=== PATIENT | female | born 2000 | race Caucasian/White ===

== ENCOUNTER → 2018-10-24 10:20 | Outpatient (CLI) | payer MEDICAID, SELFPAY ==
--- NOTE | 2018-10-24 10:25 | CA_ITS ---
PROCEDURE: 2-D M-mode and color Doppler study INDICATIONS FOR THE TEST: Chest pain COPD Heart Murmur Tobacco Smoking Palpitations Fatigue Syncope Edema Hypertension Diabetes Mellitus Rheumatic Fever SOB JOHNSON Obesity Hyperlipidemia Family History HD Additional History TACHYCARDIA PATIENT INFORMATION HEIGHT: 64 WEIGHT:216 GENDER: Female B/P:123/80 2-D/M-MODE INTERPRETATION: 2-D MEASUREMENTS OBSERVED VALUES IN CMS Right Ventricular Dimension (RVDd) 2.2 Interventricular Septum (Thickness)(IVsd) .7 Left Ventricular Internal Dimensions(LVIDd) 5.5 Left Ventricular Posterior Wall (Thickness)(LVPWd) .7 Aortic Root 2.5 Aortic Cusp Separation 1.9 Left Atrial Dimensions (LAD) 2.5 2D 1. Left atrium is normal size, left ventricle is normal size, there is no concentric left ventricular hypertrophy, visually estimated ejection fraction 55% with no regional wall motion abnormality. 2. The right atrium and right ventricle are normal size and contractility. 3. The aortic, mitral and tricuspid valvular grossly normal. 4. The pulmonic valve is poorly visualized. 5. No significant pericardial effusion noted. DOPPLER INTERROGATION: Doppler interrogation of the aortic, mitral and tricuspid valvular presence of trace mitral and tricuspid regurgitation of no hemodynamic significance, diastolic parameters are within normal range. CONCLUSION: 1. Normal left ventricular size, preserved left ventricular systolic function, visually estimated ejection fraction of 55% with no regional wall motion abnormality, diastolic parameters are within normal range. 2. Mild mitral and tricuspid regurgitation 3. No significant pericardial effusion noted.
== END ==
PROVIDERS: PCP Family Medicine; Visit Provider Family Medicine
DX: R00.0 Tachycardia, unspecified (principal)
CPT/HCPCS: 93306

== ENCOUNTER → 2019-02-28 10:34 | Outpatient (POV) | payer MEDICAID, SELFPAY | PROVIDERS: Visit Provider Otolaryngology | DX: Z00.00 Encounter for general adult medical examination without abnormal findings (principal) ==

== ENCOUNTER 2019-09-30 22:49 | Emergency (ER) | payer OTHER, SELFPAY ==
[2019-09-30 22:51] VITALS: BP 146/96; PULSE 115; RESP 16; TEMP 36.8; O2SAT 98; BMI 36.6
--- NOTE | 2019-09-30 23:16 | CT_ITS ---
Procedure: CT ABDOMEN PELVIS W CON Patient Age:18Y CLINICAL INDICATION: RUQ pain Four episodes of RUQ the and pain with nausea past 3 weeks. She had vomiting earlier today. Patient does vap COMPARISON: No exams were available for comparison TECHNIQUE: 75 cc of Optiray 350 IV contrast utilized; but no enteric contrast Helical axial images obtained with sagittal and coronal reformats. All CT scans at the facility use one or more dose reduction, viz: automated exposure control, ma/kV adjustment per patient size (including targeted exams where dose is matched to indication, i.e. head), or iterative reconstruction technique. FINDINGS: Lower thorax: Mild dependent atelectasis. Note the calcified granuloma posterior right lung base with central calcification-12 mm maximally ABDOMEN: Liver: Unremarkable no masses or biliary dilatation. Gallbladder: tiny stippled faint densities dependent portion of gallbladder reflecting either small gravel or stippled radiopaque sludge. With given history recommend follow-up gallbladder ultrasound to correlate.. No gallbladder wall distention or wall thickening or inflammatory changes otherwise. Common duct normal diameter. No intrahepatic biliary ductal dilatation either. Pancreas: Unremarkable no masses or peripancreatic fluid collections. Spleen: unremarkable Adrenals: unremarkable tract == KIDNEYS/URETERS: unremarkable no calculi nor obstruction PELVIS:Reproductive: Uterus anteverted normal size both left and right ovary normal size measuring up to 3 cm. Right ovary contains a 15 a.5 Mm dominant follicle. No significant adnexal masses. Bladder: Nondistended. No obvious stones or masses.. No calculi upper normal wall thickness but Appendix: Unremarkable. No distention or periappendiceal phlegmonous change. GI tract. ======= possible small hiatal hernia..Stomach and small bowel appear satisfactory. [facility] report mentioned upper normal wall thickness of proximal small bowel but I believe merely reflects lack of distention overall small bowel appears normal. Terminal ileum region unremarkable. Appendix normal . Large bowel. Moderate to generous stool throughout the right and transverse colon. Peritoneum: No abnormal fluid collections. No obvious inflammatory changes. No free air. Lymph nodes: scattered mesenteric lymph nodes most numerous and evident towards right lower quadrant. Largest measuring up to 12.6 mm length. The vasculature: Unremarkable. Bones: No acute fracture unremarkable IMPRESSION: 1. Gallbladder- faint gravel or stippled calcified sludge along dependent gallbladder. Recommend gallbladder ultrasound to further evaluate for suspect tiny stones. Common duct normal 2. Slight increased number of small to moderate mesenteric nodes at RLQ-. Nonspecific. May reflect some mild chronic inflammation, less likely mild mesenteric adenitis. The appendix is normal Upper normal wall thickness proximal small bowel I suspect merely reflects lack of distension. 3. No discrete or significant acute findings abdomen or pelvis otherwise evident. . Dictated by: Joe Martinez MD 10/01/2019 14:43 Electronically signed by Joe Martinez MD in [place] 10/01/2019 14:43
[2019-09-30 23:22] LABS: Microscopic, Urine URINE MICROSCOPIC (MICROSCOPIC)
[2019-09-30 23:23] LABS: Basophils # 0.1 K/mm3 (0-0.2); Basophils % 0.7 % (0.1-2.0); Eosinophils # 0.1 K/mm3 (0.0-0.4); Hematocrit 39.6 % (37.0-47.0); Lymphocytes # 2.9 K/mm3 (0.7-4.5); Lymphocytes % 31.5 % (10-50); Mean Corpuscular HGB Conc 32.9 g/dL (31.8-35.4); Mean Corpuscular Hemoglobin 27.3 pg (27.0-31.2); Mean Platelet Volume 8.5 fl (7.4-10.4); Monocytes # 0.4 K/mm3 (0.1-1.0); Monocytes % 4.1 % (1.7-9.3); Neutrophils # 5.7 K/mm3 (1.8-7.8); Neutrophils % 62.7 % (37.0-80.0); Platelet Count 344 K/mm3 (142-424); Red Blood Count 4.77 M/mm3 (4.20-5.40); Red Cell Distribution Width 13.4 % (11.5-17.5); White Blood Count 9.1 K/mm3 (4.5-13.0)
[2019-09-30 23:24] LABS: Appearance,Urine CLEAR (Clear); Bilirubin,Urine Negative (Negative); Blood, Urine Negative (Negative); Color,Urine YELLOW (Yellow); Glucose,Urine (UA) Negative (Negative); Ketones,Urine Negative (Negative); Leukocyte Esterase,Urine TRACE (Negative); Nitrate,Urine Negative (Negative); PH,Urine 8.5 (5.0-8.5); Protein,Urine Negative (Negative)
[2019-09-30 23:26] LABS: Urine Pregnancy, HCG Qual. Negative (Negative)
[2019-09-30 23:27] LABS: Amorphous Sediment,Urine Trace /lpf; Squamous Epithelial Cell,Urine 20-50 #/hpf (0-5); WBC,Urine Occasional #/hpf (0-3)
[2019-09-30 23:28] LABS: Alanine Aminotransferase 19 U/L (12-78); Albumin Level 4.4 g/dl (3.5-5.0); Albumin/Globulin Ratio 1.3 (1.1-1.8); Alkaline Phosphatase 99 U/L (38-126); Amylase 45 U/L (30-110); Anion Gap 11.5 mEq/L (5-15); Aspartate Amino Transferase 29 U/L (14-36); Blood Urea Nitrogen 12 mg/dl (7-17); Calcium 9.4 mg/dl (8.4-10.2); Carbon Dioxide 25 mmol/L (22.0-30.0); Chloride 105 mmol/L (98-107); Creatinine Clearance Estimated 196 mL/min (50-200); Estimated Glomerular Filt Rate 107 ml/min (>60); GFR (African American) 129 ML/MIN (>60); Globulin 3.5 g/dL (1.3-3.2); Glucose 94 mg/dl (74-100); Lipase 88 U/L (23-300); Potassium 3.5 mmoL/L (3.5-5.1); Sodium 138 mmol/L (136-145); Total Protein,Serum 7.9 g/dl (6.3-8.2)
[2019-09-30 23:30] VITALS: BP 140/91; PULSE 94; RESP 18; O2SAT 98
[2019-09-30 23:31] LABS: Bilirubin,Total 0.1 mg/dl (0.2-1.3)
[2019-10-01] VITALS: BP 134/89; PULSE 90; RESP 16; O2SAT 100
[2019-10-01 00:30] VITALS: BP 142/87; PULSE 94; RESP 16; O2SAT 99
--- NOTE | 2019-10-01 00:32 | HMH.EDNVD ---
ED Disposition Clinical Impression: Abdominal pain Qualifiers: Abdominal location: right upper quadrant Qualified Code(s): R10.11 - Right upper quadrant pain Disposition: Home, Self-Care Condition on Discharge: Good Instructions: DI for Acute Abdomen Additional Instructions: call pcp for follow up and gb eval Referrals: Davon Longoria MD [Primary Care Provider] - - Critical Care Critical Care Time: No Attestation: On 09/30/19, the high probability of a clinically significant, sudden or life threatening deterioration of the following system(s) required my full and direct attention, intervention and personal management. The time I documented below is in addition to time spent performing reported procedures but includes the following listed in this critical care notation. Medical Decision Making - Medical Records Medical records reviewed: Yes: I reviewed the patient's medical records. - Arnie Inquiry Pt receiving controlled substance: No Vital Signs: 09/30/19 22:51 09/30/19 23:30 10/01/19 00:00 Temperature 98.2 F Temperature Source Oral Pulse Rate [Left Radial] 115 H 94 H 90 Respiratory Rate 16 18 16 Blood Pressure [Right Arm] 146/96 H 140/91 H 134/89 Blood Pressure Mean [Right Arm] 112 107 104 Blood Pressure Source [Right Arm] Automatic Cuff Automatic Cuff Automatic Cuff Blood Pressure Position [Right Arm] Supine Supine Supine 02 Sat by Pulse Oximetry 98 98 100 Oxygen Delivery Method Room Air Room Air Room Air 10/01/19 00:30 Temperature Temperature Source Pulse Rate [Left Radial] 94 H Respiratory Rate 16 Blood Pressure [Right Arm] 142/87 H Blood Pressure Mean [Right Arm] 105 Blood Pressure Source [Right Arm] Automatic Cuff Blood Pressure Position [Right Arm] Supine 02 Sat by Pulse Oximetry 99 Oxygen Delivery Method Room Air - Lab Data Lab results reviewed: Yes: I reviewed the patient's lab results. Lab Results 09/30/19 23:10: Urine Color Yellow, Urine Appearance Clear, Urine pH 8.5, Ur Specific [place] 1.020, Urine Protein Negative, Urine Glucose (UA) Negative, Urine Ketones Negative, Urine Blood Negative, Urine Nitrate Negative, Urine Bilirubin Negative, Urine Urobilinogen 1.0, Ur Leukocyte Esterase Trace, Urine WBC Occasional, Ur Squamous Epith Cells 20-50, Amorphous Sediment Trace 09/30/19 23:10: WBC 9.1, RBC 4.77, Hgb 13.0, Hct 39.6, MCV 83.0, MCH 27.3, MCHC 32.9, RDW 13.4, Plt Count 344, MPV 8.5, Neut % (Auto) 62.7, Lymph % (Auto) 31.5, [place] % (Auto) 4.1, Eos % (Auto) 1.0, Baso % (Auto) 0.7, Neut # (Auto) 5.7, Lymph # (Auto) 2.9, [place] # (Auto) 0.4, Eos # (Auto) 0.1, Baso # (Auto) 0.1 09/30/19 23:10: Urine HCG, Qual Negative 09/30/19 23:10: Sodium 138, Potassium 3.5, Chloride 105, Carbon Dioxide 25, Anion Gap 11.5, BUN 12, Creatinine 0.70, Estimated Creat Clear 196, Estimated GFR 107, Est GFR ( Amer) 129, Glucose 94, Calcium 9.4, Total Bilirubin 0.1 L, AST 29, ALT 19, Alkaline Phosphatase 99, Total Protein 7.9, Albumin 4.4, Globulin 3.5 H, Albumin/Globulin Ratio 1.3, Amylase 45, Lipase 88 Result diagrams: 09/30/19 23:10 09/30/19 23:10 Orders (Tests/Meds): ED MEDICATIONS Generic Name Dose Route Start Last Admin Trade Name Freq PRN Reason Stop Dose Admin Sodium Chloride 1,000 mls @ 999 mls/hr 09/30/19 23:30 09/30/19 23:19 Sod Chlor 0.9% 1000ml Bag IV 10/01/19 00:30 999 mls/hr .Q1H1M ARIEL Administration Sodium Chloride 8 ml 09/30/19 23:17 Sodium Chloride 0.9% 10ml Vial IV 10/30/19 23:16 NEEDED PRN dilute pepcid Discontinued Medications Generic Name Dose Route Start Last Admin Trade Name Freq PRN Reason Stop Dose Admin Famotidine 20 mg 09/30/19 23:17 09/30/19 23:30 Pepcid 20mg/2ml Vial IV 09/30/19 23:18 20 mg ONCE ONE Administration Ioversol 75 ml 10/01/19 00:07 10/01/19 00:08 Rad-Optiray 350 100ml Vial IV 10/01/19 00:08 75 ml ONCE ONE Administration Protocol Ketorolac Tromethamine 30 mg 09/30/19
[2019-10-01 01:30] VITALS: BP 131/91; PULSE 92; RESP 16; O2SAT 99
[2019-10-01 02:36] VITALS: BP 142/89; PULSE 89; RESP 16; TEMP 36.8; O2SAT 99
== END 2019-10-01 02:39 | disposition home or self-care (01) ==
PROVIDERS: Emergency Provider Emergency Medicine; PCP Family Medicine
DX: R10.11 Right upper quadrant pain (principal)
CPT/HCPCS: 74177; 80053; 81001; 81025; 82150; 83690; 85025; 96365; 96375; 99284; J2405; Q9967

== ENCOUNTER → 2019-10-05 07:42 | Outpatient (CLI) | payer OTHER, SELFPAY ==
--- NOTE | 2019-10-05 07:47 | US_ITS ---
PROCEDURE: US ABDOMEN LIMITED CLINICAL INDICATION: RUQ PAIN COMPARISON: CT ABDOMEN PELVIS W CON from 09/30/2019 FINDINGS: PANCREAS: Unremarkable. No obvious mass or abnormal fluid collection. No ductal dilatation LIVER: No focal liver lesions demonstrated. Homogeneous echogenicity. No intrahepatic biliary ductal dilatation evident. There is appropriate direction of blood flow within a non dilated portal vein RIGHT KIDNEY: Unremarkable. Normal size and echogenicity. No hydronephrosis. There it is a small focus of increased echogenicity in the right kidney of unknown clinical significance GALLBLADDER: There are several small gallstones. No gallbladder wall thickening, pericholecystic fluid, or biliary dilatation is evident.. Common bile duct is 3 mm. IMPRESSION: Cholelithiasis Dictated by: Maik Warren MD 10/05/2019 14:19 Electronically signed by Maik Warren MD in [place] 10/05/2019 14:19
== END ==
PROVIDERS: PCP Family Medicine; Visit Provider Family Medicine
DX: R10.11 Right upper quadrant pain (principal)
CPT/HCPCS: 76705

== ENCOUNTER → 2019-10-30 11:45 | Outpatient (CLI) | payer OTHER, SELFPAY ==
[2019-10-30 12:23] LABS: Basophils % 0.4 % (0.1-2.0); Eosinophils % 0.4 % (0.1-12.0); Hematocrit 37.2 % (37.0-47.0); Lymphocytes # 2.1 K/mm3 (0.7-4.5); Lymphocytes % 22.5 % (10-50); Mean Corpuscular HGB Conc 32.3 g/dL (31.8-35.4); Mean Corpuscular Hemoglobin 26.4 pg (27.0-31.2); Mean Corpuscular Volume 81.8 fl (81-99); Mean Platelet Volume 8.6 fl (7.4-10.4); Monocytes # 0.3 K/mm3 (0.1-1.0); Monocytes % 3.7 % (1.7-9.3); Neutrophils # 6.7 K/mm3 (1.8-7.8); Neutrophils % 72.9 % (37.0-80.0); Platelet Count 313 K/mm3 (142-424); Red Blood Count 4.54 M/mm3 (4.20-5.40); Red Cell Distribution Width 13.5 % (11.5-17.5); White Blood Count 9.2 K/mm3 (4.5-13.0)
[2019-10-30 12:49] LABS: HCG Qualitative, Serum Negative (Negative)
[2019-10-30 12:52] LABS: Alanine Aminotransferase 26 U/L (12-78); Albumin Level 4.5 g/dl (3.5-5.0); Albumin/Globulin Ratio 1.5 (1.1-1.8); Alkaline Phosphatase 102 U/L (38-126); Anion Gap 11.8 mEq/L (5-15); Aspartate Amino Transferase 24 U/L (14-36); Bilirubin,Total 0.2 mg/dl (0.2-1.3); Blood Urea Nitrogen 11 mg/dl (7-17); Calcium 9.7 mg/dl (8.4-10.2); Carbon Dioxide 22 mmol/L (22.0-30.0); Chloride 104 mmol/L (98-107); Estimated Glomerular Filt Rate 107 ml/min (>60); GFR (African American) 129 ML/MIN (>60); Globulin 3.1 g/dL (1.3-3.2); Glucose 127 mg/dl (74-100); Potassium 3.8 mmoL/L (3.5-5.1); Sodium 134 mmol/L (136-145); Total Protein,Serum 7.6 g/dl (6.3-8.2)
[2019-11-01 11:07] LABS: Covid-19 Nasal PCR Sendout Lex NOT DETECTED
== END ==
PROVIDERS: Visit Provider Surgery
DX: Z01.818 Encounter for other preprocedural examination (principal); K80.80 Other cholelithiasis without obstruction
CPT/HCPCS: 36415; 80053; 84703; 85025; U0004

== ENCOUNTER 2019-11-01 06:09 | Day surgery (SDC) | payer OTHER, SELFPAY ==
--- NOTE | 2019-10-27 08:56 | SUR.PREOP ---
10/27/2019 @ 0900--PHONE CALL MADE TO PATIENT. PATIENT UNDERSTANDS THAT LAB WORK AND COVID TESTING NEEDS TO BE COMPLETED @ 0830 ON 10/30/2019. PATIENT UNDERSTANDS IF LAB WORK AND COVID-19 TESTS ARE NOT COMPLETED BY 12PM ON THAT DATE, THE SURGERY SCHEDULED WILL BE CANCELLED AND RESCHEDULED FOR ANOTHER TIME.
[2019-10-31 11:23] VITALS: BMI 37.0
[2019-11-01] VITALS (14 sets, daily range): BP systolic 116–158; BP diastolic 57–103; PULSE 65–82; RESP 13–21; TEMP 36.6–43; O2SAT 97–99
--- NOTE | 2019-11-01 06:53 | P.PN_ITS ---
[facility] Anesthesia Checklist - Patient Identification Patient Identification: Arm Band, Verbal (Name & ) - Structural Data Admitted From: Home Planned Operative Procedure/s: Laparoscopic cholecystectomy Consent for Planned Operative Procedure(s) Verified: Yes Verified Documents: Surgical Consent, History and Physical - NPO Status Verified Time NPO: 21:30 - Chart Verification Results Verified: CBC, BMP, UA, HCG - Additional verifications Patient : No Anesthesia Reactions: No Hx Blood Transfusions: No Blood Transfusion Reaction: No - Airway Assessment C-Spine Mobility Assessed: Yes TMJ Mobility Assessed: Yes Dentition: Good Dentition (missing tooth) - Neurological Assessment Level of Consciousness: Awake, Alert, Appropriate, Follows Commands Hx Seizures: No Numbness or tingling in extremities: No - Anesthesia Plan Anesthesia Risk discussed: Yes Anesthesia Plan: Verified ASA Class: III Anesthesia Type: General [facility] History I have reviewed the patient's past medical history: Yes Medical History: Reports:: Depression, Valvular Heart Disease (MVR) Denies:: Cancer, Diabetes Mellitus Type 1, Diabetes Mellitus Type 2, Internal Pacemaker, MRSA, Seizures *Have you ever received a pneumonia vaccine?: No *Have you received a flu vaccine this season?: Yes Other Medical History: Denies: Blood Transfusion Reaction Comment:: ADD Anesthesia experience/problems:: none Laterality Cases: Bilateral: Other (wisdom teeth) Other Surgeries: No: Pacemaker Amputation: No Fractures: No - *Social History Educational Level: Completed High School Smoking Status: Current every day smoker Tobacco Type: e-cigarettes # Packs/Day (cigarettes): 1 Alcohol Intake: never Substance Use Type: denies use *Occupational Status:: employed Housing: house Household Members: significant other *Travel in the last 8 weeks: None Family Hx:: Unable to obtain
--- NOTE | 2019-11-01 08:16 | P.OP_ITS ---
Date of procedure: 11/01/19 Pre-op Diagnosis:: Symptomatic gallstones Post-op Diagnosis:: Same Procedure performed:: Laparoscopic cholecystectomy Surgeon:: Wili Quinn MD BUILDER[employer]OURER:: Daryl Senior Anesthesia: ARIEL Estimated blood loss (mL): 20 Clinical Note:: Patient is a 18-year-old female referred by Dr. Longoria for gallstones. She had presented to the emergency department on 09/30/2019 with severe right upper quadrant pain with associated nausea and radiation through to her back. This had occurred a couple hours after she had eaten some chicken Wilder. She states that she has had several attacks characterized as squeezing sharp pain in the right upper quadrant with radiation to the epigastrium and into the back. 3 weeks prior to her presentation to the emergency department she had several attacks. When she was evaluated in the emergency department she had a CT scan performed which revealed findings of possible gravel versus sludge in the gallbladder but she was able to be managed as an outpatient. She underwent gallbladder ultrasound on 10/05/2019 which revealed small gallstones with normal common bile duct. Operative findings:: She had a distended gallbladder with small stones in the neck. Operative note:: Patient was taken to the operating room. She was given preoperative intravenous antibiotics. In the operating room she was placed in a supine position. General anesthesia was induced via endotracheal tube. Abdomen was prepped and draped in the standard surgical fashion. Subumbilical skin incision was made. Dissection was carried down to the fascia. While performing abdominal wall lift Veress needle was inserted. CO2 pneumoperitoneum was achieved to 15 mmHg. 11 mm optical trocar was inserted at the umbilicus. Intraperitoneal contents were visualized. She was positioned in reverse Trendelenburg left side down. A couple of 5 mm trochars were inserted in the right upper abdomen. 10 mm trocar was inserted in the epigastrium. Gallbladder was grasped and retracted anteriorly and superiorly over the dome of the liver. There were some adhesions to the neck of the gallbladder including the duodenum which were taken down using blunt dissection. Infundibulum/Jarrett's pouch of the gallbladder was retracted anterior laterally. Blunt dissection was carried out the neck of the gallbladder bluntly incising the visceral peritoneum. The cystic duct and cystic artery were clearly identified. There was some visualized small stones in the neck of the gallbladder. The cystic duct was isolated, multiply clipped, and divided. Cystic artery was carefully coagulated with ANGELICA ultrasonic robotic mackenzie and divided. Gallbladder was dissected free from the liver in a retrograde fashion using ANGELICA ultrasonic harmonic mackenzie. Gallbladder was placed within an Endo Catch retrieval device removed from the peritoneal cavity via the umbilical trocar site. Limited irrigation was carried out of the gallbladder fossa and perihepatic space. There was good hemostasis. Trochars were removed as CO2 pneumoperitoneum was evacuated. Fascia at the umbilicus was closed with a 0 Vicryl suture. Local anesthetic was infiltrated. Skin incisions were closed with 4-0 Monocryl in a subcuticular fashion. Steri-Strips and dressings were applied. Condition: stable Disposition: PACU Specimens:: Gallbladder and contents Complications:: None immediately apparent
--- NOTE | 2019-11-01 08:21 | P.PN_ITS ---
[facility] Anesthesia Record Part I Intake, IV Amount: 700 Estimated blood loss (mL): 10 Urine output (mL): 0 Blood Products used (#): none Blood Pressure: 131/78 SaO2: 97 Pulse Rate: 82 Respiratory Rate: 20 Temperature: 98.1 F Patient is:: Drowsy, Stable Stable to PACU at:: 08:18
--- NOTE | 2019-11-01 09:43 | P.PN_ITS ---
[facility] Anesthesia Record Part II Discharge Time: 08:48 Destination: Surgical Day Care (OP Surgery) PACU nurse assessment reviewed?: Yes Patient Condition:: Good Anesthesia Complications:: None Swallowing reflex intact?: Yes Cyanosis?: No Blood Pressure: 158/94 Pulse Rate: 65 Temperature: 98.0 F Mental Status: Alert & Oriented Pain level:: 2 Nausea and/or vomitting:: None Intake, IV Amount: 20
[2019-11-02 04:07] LABS: Hepatitis B Surface Antigen Negative (Negative)
[2019-11-02 11:39] LABS: HIV Screen 4th Generation wRfx Non Reactive (Non Reactive); Hep B Core Ab, Total Negative (Negative); Hepatitis C Antibody <0.1 s/co ratio (0.0-0.9)
== END 2019-11-01 09:49 | disposition home or self-care (01) ==
PROVIDERS: PCP Family Medicine; Visit Provider Surgery
PROC: 0FT44ZZ Resection of Gallbladder, Percutaneous Endoscopic Approach (ICD-10-PCS; CPT 47562; principal; 2019-11-01 07:30)
DX: K80.80 Other cholelithiasis without obstruction (principal); Z79.899 Other long term (current) drug therapy
CPT/HCPCS: 47562; 36415; 86703; 86704; 87340; 87380; 96374; G0432; J0131; J2405

== ENCOUNTER 2020-06-16 13:22 | Emergency (ER) | payer SELFPAY ==
[2020-06-16 15:02] VITALS: BP 118/77; PULSE 73; RESP 14; TEMP 36.2; O2SAT 100; BMI 35.2
[2020-06-16 15:08] VITALS: BP 118/77; PULSE 73; RESP 14; TEMP 36.2; O2SAT 100
--- NOTE | 2020-06-16 15:09 | HMH.EDUTC ---
[facility] [place] Disposition Clinical Impression: Exposure to COVID-19 virus Disposition: Home, Self-Care Condition on Discharge: Good Instructions: DI for COVID-19 (Suspected or Confirmed ), Preventing the Spread of Coronavirus Discharge Instructions Additional Instructions: self isolate until covid test known to be neg Referrals: Davon Longoria MD [Primary Care Provider] - Time of Disposition: 15:12 Medical Decision Making - Arnie Inquiry Pt receiving controlled substance: No Vital Signs: 06/16/20 15:02 06/16/20 15:08 Temperature 97.2 F L 97.2 F L Temperature Source Oral Pulse Rate 73 Pulse Rate [Right Brachial] 73 Respiratory Rate 14 14 Blood Pressure 118/77 Blood Pressure [Right Arm] 118/77 Blood Pressure Mean [Right Arm] 90 Blood Pressure Source [Right Arm] Automatic Cuff Blood Pressure Position [Right Arm] Sitting 02 Sat by Pulse Oximetry 100 Oxygen Delivery Method Room Air [facility] [place] HPI - General Chief complaint: Urgent Treatment Center Stated complaint: covid exposure Time Seen by Provider: 06/16/20 15:10 Mode of Arrival: Ambulatory Source of Information: Patient Limitations: No Limitations Description of Symptoms (Recalled from Triage Doc. by RN): PATIENT REQUESTING COVID TEST D/T EXPOSURE; DENIES SYMPTOMS HEENT Symptoms (Recalled from RN notes): No Resp Symptoms (Recalled from RN notes): No Skin Symptoms (Recalled from RN notes): No MS Symptoms (Recalled from RN notes): No Functional Status (Recalled from RN notes): WNL - History of Present Illness Provider Complaint: 19yr old female presents for covid test. pt states she was exposed but no symptoms. - Related Data Home Medications Medication Instructions Recorded Confirmed dextroamphetamine-amphetamine 5 mg 5 mg PO DAILY 10/13/19 11/17/19 tablet topiramate 25 mg tablet 25 mg PO DAILY 10/13/19 11/17/19 venlafaxine 37.5 mg 37.5 mg PO DAILY 10/13/19 11/17/19 capsule,extended release 24 hr Metoprolol Succinate [Toprol XL 25 mg PO DAILY 10/31/19 11/17/19 25mg tablet] Norethindrone [Jencycla] 0.35 mg PO DAILY 10/31/19 11/17/19 Allergies Allergy/AdvReac Type Severity Reaction Status Date / Time No Known Allergies Allergy Verified 11/17/19 10:12 - Worker's Comp Is this a Worker's Comp case?: No [facility] History - Hepatitis A Screen Drug use history?: No High risk sexual behaviors?: No History of sexually transmitted infection?: No Currently employed?: No Childcare worker?: No Do you have indoor plumbing?: Yes Do you have electricity?: Yes Attestation statement:: This patient has been screened for Hepatitis A risk factors. I have reviewed the patient's past medical history: Yes Medical History: Reports:: Depression, Valvular Heart Disease Denies:: Cancer, Diabetes Mellitus Type 1, Diabetes Mellitus Type 2, Internal Pacemaker, MRSA, Seizures Other Medical History: Denies: Blood Transfusion Reaction Comment: ADD Laterality Cases: Bilateral: Other Other Surgeries: No: Pacemaker Amputation: No Fractures: No - Social History Smoking Status: Current every day smoker Tobacco Type: e-cigarettes # Packs/Day (cigarettes): 1 Alcohol Intake: never Substance Use Type: denies use Occupational Status: other Housing: house Household Members: significant other - Psychiatric History Pschychiatric History:: Reports:: Depression Family Hx:: Unable to obtain ROS Obtained: Yes All systems reviewed & no additional complaints, Yes Systems reviewed as appropriate & no additional complaints - Constitutional Constitutional: Reports system reviewed and no additional complaints, except as docu, Denies chills, Denies fever(s) - Eyes Eyes: Reports system reviewed and no additional complaints, except as docu, Denies blurry vision - ENT Ears, Nose, Mouth, and Throat: Reports system reviewed and no additional complaints, except as docu, Denies dizziness - Cardiovascular Cardiovascular: Reports system reviewed and
== END 2020-06-16 15:10 | disposition home or self-care (01) ==
PROVIDERS: Emergency Provider Nurse Practitioner Family; PCP Family Medicine
DX: Z20.822 Contact with and (suspected) exposure to COVID-19 (principal); F33.1 Major depressive disorder, recurrent, moderate; F17.290 Nicotine dependence, other tobacco product, uncomplicated; Z79.899 Other long term (current) drug therapy
CPT/HCPCS: 99202; G0463; U0003

== ENCOUNTER 2020-10-04 16:05 | Emergency (ER) | payer BC, SELFPAY ==
[2020-10-04 16:37] VITALS: BP 136/76; PULSE 80; RESP 16; TEMP 36.7; O2SAT 98; BMI 34.7
--- NOTE | 2020-10-04 16:38 | ED_ITS ---
[facility] [place] Disposition Clinical Impression: Exposure to COVID-19 virus Disposition: Home, Self-Care Condition on Discharge: Good Instructions: Preventing the Spread of Coronavirus Discharge Instructions Referrals: Davon Longoria MD [Primary Care Provider] - Time of Disposition: 16:39 Medical Decision Making - Arnie Inquiry Pt receiving controlled substance: No Orders (Tests/Meds): ORDERS Category Date Time Status Covid-19 Nasal PCR ([facility]) Routine Lab 10/04/20 16:34 Ordered [facility] [place] HPI - General Stated complaint: covid test Time Seen by Provider: 10/04/20 16:38 - History of Present Illness Provider Complaint: Patient has had mild runny nose and cough X 2 days. No fever. Today she lost taste and smell. No vomiting or diarrhea. Onset (ago): day(s) (2) Relieving factors: none Exacerbating factors: none Associated symptoms: denies other symptoms Treatments prior to arrival: none - Related Data Home Medications Medication Instructions Recorded Confirmed dextroamphetamine-amphetamine 5 mg 5 mg PO DAILY 10/13/19 11/17/19 tablet topiramate 25 mg tablet 25 mg PO DAILY 10/13/19 11/17/19 venlafaxine 37.5 mg 37.5 mg PO DAILY 10/13/19 11/17/19 capsule,extended release 24 hr Metoprolol Succinate [Toprol XL 25 mg PO DAILY 10/31/19 11/17/19 25mg tablet] Norethindrone [Jencycla] 0.35 mg PO DAILY 10/31/19 11/17/19 Allergies Allergy/AdvReac Type Severity Reaction Status Date / Time No Known Allergies Allergy Verified 11/17/19 10:12 [facility] History - Hepatitis A Screen Attestation statement:: This patient has been screened for Hepatitis A risk factors. I have reviewed the patient's past medical history: Yes Medical History: Reports:: Depression, Valvular Heart Disease Denies:: Cancer, Diabetes Mellitus Type 1, Diabetes Mellitus Type 2, Internal Pacemaker, MRSA, Seizures Other Medical History: Denies: Blood Transfusion Reaction Comment: ADD Laterality Cases: Bilateral: Other Other Surgeries: No: Pacemaker Amputation: No Fractures: No - Social History Smoking Status: Current every day smoker Tobacco Type: e-cigarettes # Packs/Day (cigarettes): 1 Alcohol Intake: never Substance Use Type: denies use Occupational Status: other Housing: house Household Members: significant other - Psychiatric History Pschychiatric History:: Reports:: Depression Family Hx:: Unable to obtain ROS Obtained: Yes All systems reviewed & no additional complaints - ENT Ears, Nose, Mouth, and Throat: Reports as per HPI Physical Exam - General General appearance: alert, in no apparent distress - Head Head exam: normocephalic - Eye Eye exam: Present: PERRL - ENT ENT exam: Present: normal oropharynx, TM's normal bilaterally - Chest Chest inspection: Present: symmetric chest wall rise - Respiratory Respiratory exam: Present: normal lung sounds bilaterally - Cardiovascular Cardiovascular exam: Present: regular rate, normal rhythm - Neurological Exam Neurological exam: Present: alert, oriented X3 - Psychiatric Psychiatric exam: Present: normal affect, normal mood - Skin Skin exam: Present: warm, dry, intact
[2020-10-04 16:51] VITALS: BP 136/70; PULSE 82; RESP 16; TEMP 36.7; O2SAT 98
--- NOTE | 2020-10-04 20:22 | PC.NURSE ---
Notified pt of positive covid results
== END 2020-10-04 16:54 | disposition home or self-care (01) ==
PROVIDERS: Emergency Provider Physician Assistant; PCP Family Medicine
DX: U07.1 COVID-19 (principal); F33.1 Major depressive disorder, recurrent, moderate; F17.290 Nicotine dependence, other tobacco product, uncomplicated
CPT/HCPCS: 99202; G0463; U0003

== ENCOUNTER → 2022-03-05 14:37 | Outpatient (CLI) | payer BC, SELFPAY ==
[2022-03-05 15:47] LABS: HCG,Quantitative 5012 mIU/ml (0-5.42)
== END ==
PROVIDERS: PCP Family Medicine; Visit Provider Obstetrics & Gynecology
DX: N92.6 Irregular menstruation, unspecified (principal)
CPT/HCPCS: 36415; 84702

== ENCOUNTER → 2022-03-18 10:36 | Outpatient (CLI) | payer BC, SELFPAY ==
[2022-03-18 11:05] LABS: Basophils % 0.4 % (0.1-2.0); Eosinophils # 0.1 K/mm3 (0.0-0.4); Eosinophils % 0.9 % (0.1-12.0); Hematocrit 38.5 % (37.0-47.0); Hemoglobin 12.2 g/dL (12.2-16.2); Lymphocytes # 1.7 K/mm3 (0.7-4.5); Lymphocytes % 21.2 % (10-50); Mean Corpuscular HGB Conc 31.8 g/dL (31.8-35.4); Mean Corpuscular Hemoglobin 27.2 pg (27.0-31.2); Mean Corpuscular Volume 85.5 fl (81-99); Mean Platelet Volume 8.6 fl (7.4-10.4); Monocytes # 0.4 K/mm3 (0.1-1.0); Monocytes % 4.3 % (1.7-9.3); Neutrophils # 5.9 K/mm3 (1.8-7.8); Neutrophils % 73.2 % (37.0-80.0); Platelet Count 328 K/mm3 (142-424); White Blood Count 8.1 K/mm3 (4.8-10.8)
[2022-03-19 07:12] LABS: HIV Screen 4th Generation wRfx Non Reactive (Non Reactive); Hepatitis B Surface Antigen Negative (Negative); Hepatitis C Antibody <0.1 s/co ratio (0.0-0.9)
[2022-03-19 11:20] LABS: Rapid Plasma Reagin Ab Titer Non Reactive (NonRea<1:1)
== END ==
LOC: LAB 10:36 → LAB.DROPOF 03-19 06:16
PROVIDERS: PCP Family Medicine; Visit Provider Obstetrics & Gynecology
DX: Z34.90 Encounter for supervision of normal pregnancy, unspecified, unspecified trimester (principal)
CPT/HCPCS: 36415; 85025; 86592; 86703; 86762; 86850; 87086; 87340; 87380; G0432

== ENCOUNTER → 2022-04-14 09:24 | Outpatient (CLI) | payer BC, SELFPAY ==
--- NOTE | 2022-04-14 09:27 | CA_ITS ---
APPROVED REPORT EXAM: Comprehensive 2D, Doppler, and color-flow Echocardiogram Rodding Machine Tender: Margot Tran CRT Ht: 5 ft 4 in Wt: 255lbs BSA: 2.17 BP: 137/87 mmHg Indications: MV regurg, 12 weeks 2D Dimensions LVOT 1.94 cm (M/F) 1.5-2.5 LA Volume 52.60 mL LA Volume Index 23.70 mL/m2 (M/F) 16-34 M-Mode Dimensions RVDd 3.22 cm (0.9-2.6) LA Diam 3.52 cm (1.9-4.0) LVDd 4.36 cm (3.5-5.7) Ao Diam 3.61 cm (2.0-3.7) LVDs 2.86 cm (3.5-5.7) IVSd 1.25 cm (0.6-1.1) PWd 0.59 cm (0.6-1.1) EF (Teich) 63.80% FS 34.40% EDV (Teich) 85.80 mL TAPSE 1.88 (<1.7) ESV (Teich) 31.10 mL LV Diastology E Decel Time 163.00 (160-240 msec) E/A Ratio 1.87 MED E' 17.80 (< 7 cm/sec) MED A' 11.60 cm/s E'/MED E' Ratio 5.46 (>14) LAT E' 13.00 (<10 cm/sec) LAT A' 12.60 cm/s E/LAT E' Ratio 7.47 (>14) Aortic Valve AO Peak GR. 9.50 mmHg Mitral Valve MV A Velocity 52.00 (40-130 cm/s) E/A Ratio 1.87 MV Decel. Time 163.00 (160-240 ms) Pulmonary Valve PV Peak Velocity 59.00 (50-150 cm/s) Tricuspid Valve TR P. Velocity 247.00 cm/s RAP Estimate 10.00 mmHg RVSP 34.50 mmHg Left Ventricle Left atrium is normal size, left ventricle is normal size, there is no concentric left ventricular hypertrophy, estimated ejection fraction 55% with no regional wall motion abnormality, diastolic parameters are within normal range. Right Ventricle Right atrium and right ventricle are normal size and contractility. Aortic Valve Aortic valve is grossly normal, there is no aortic stenosis or aortic insufficiency. Mitral Valve Mitral valve is grossly normal, there is mild mitral regurgitation. Tricuspid Valve Tricuspid valve is grossly normal, there is mild tricuspid regurgitation, tricuspid regurgitation jet velocity is inadequate for calculation of the right ventricular systolic pressure. Pulmonic Valve Pulmonic valve is poorly visualized. Great Vessels Aortic root is normal size. Inferior vena cava is normal size with normal inspiratory collapse. Pericardium No significant pericardial effusion noted. Conclusion 1. Normal left ventricular size preserved left ventricular systolic function, estimated ejection fraction 55% with no regional wall motion abnormality, diastolic parameters are within normal range. 2. Mild mitral regurgitation. 3. No significant pericardial effusion noted. 4. Inferior vena cava is normal size with normal inspiratory collapse. Electronically signed by : Sammy Palomares MD 04/15/2022 06:52:28
== END ==
LOC: RT 09:25
PROVIDERS: PCP Family Medicine; Visit Provider Nurse Practitioner
DX: I34.0 Nonrheumatic mitral (valve) insufficiency (principal); Z34.90 Encounter for supervision of normal pregnancy, unspecified, unspecified trimester
CPT/HCPCS: 93306

== ENCOUNTER → 2022-06-23 13:26 | Outpatient (CLI) | payer BC, SELFPAY ==
--- NOTE | 2022-06-23 13:26 | US_ITS ---
FINAL REPORT CLINICAL HISTORY: 20 week anatomy scan FINDINGS: There is a single live intrauterine gestation. Presentation is cephalic. The cervix is closed and measures 4 cm. Placenta is fundal. Cardiac activity is confirmed at 142 bpm. The fetus is active. Three-vessel cord with satisfactory umbilical cord insertion. Four-chamber heart is noted. brain and ventricles are unremarkable. Chest and diaphragm are unremarkable. ABDOMEN: Both kidneys are unremarkable. Stomach is unremarkable. SPINE: No anomalies identified. Both arms and legs noted. AMNIOTIC FLUID: Appropriate amount. MEASUREMENTS: ULTRASOUND AGE: 21 weeks 6 days. GESTATION AGE: 21 weeks 5 days. ESTIMATED WEIGHT: 460 g GROWTH PERCENTILE: 54% BPD: 5.3 cm consistent with 22 weeks 1 days. OFD: 6.6 cm consistent with 21 weeks 5 days. HC: 18.7 cm consistent with 21 weeks 1 days. AC: 17.3 cm consistent with 22 weeks 2 days. FL: 3.7 cm consistent with 21 weeks 5 days. CEREBELLUM: 2 cm consistent with 20 weeks 5 days. HUMERUS: 3.5 cm consistent with 22 weeks 1 days. HC/AC: 1.08 CI: 80% FL/BPD: 69% FL/AC: 21% IMPRESSION: Single living IUP with an ultrasound age of 21 weeks 6 days. Reviewed, Interpreted and Dictated by Wili Linton III, MD Transcribed by Pal Owen Authenticated and [facility]
== END ==
PROVIDERS: PCP Family Medicine; Visit Provider Obstetrics & Gynecology
DX: Z34.90 Encounter for supervision of normal pregnancy, unspecified, unspecified trimester (principal); Z3A.20 20 weeks gestation of pregnancy
CPT/HCPCS: 76811

== ENCOUNTER → 2022-07-16 08:17 | Outpatient (CLI) | payer BC, SELFPAY ==
[2022-07-16 08:54] LABS: Basophils % 0.4 % (0.1-2.0); Eosinophils # 0.1 K/mm3 (0.0-0.4); Hematocrit 33.4 % (37.0-47.0); Hemoglobin 11.1 g/dL (12.2-16.2); Lymphocytes # 1.9 K/mm3 (0.7-4.5); Lymphocytes % 19.2 % (10-50); Mean Corpuscular HGB Conc 33.2 g/dL (31.8-35.4); Mean Corpuscular Hemoglobin 27.7 pg (27.0-31.2); Mean Corpuscular Volume 83.4 fl (81-99); Monocytes # 0.4 K/mm3 (0.1-1.0); Monocytes % 4.5 % (1.7-9.3); Neutrophils # 7.4 K/mm3 (1.8-7.8); Neutrophils % 74.9 % (37.0-80.0); Platelet Count 301 K/mm3 (142-424); Red Blood Count 4.01 M/mm3 (4.20-5.40); Red Cell Distribution Width 14.7 % (11.5-17.5); White Blood Count 9.9 K/mm3 (4.8-10.8)
[2022-07-16 09:07] LABS: Glucose,Fasting 83 mg/dl (74-100)
[2022-07-16 10:31] LABS: Glucose 1 Hour 127 mg/dL (74-100)
== END ==
PROVIDERS: PCP Family Medicine; Visit Provider Obstetrics & Gynecology
DX: Z34.90 Encounter for supervision of normal pregnancy, unspecified, unspecified trimester (principal); Z3A.15 15 weeks gestation of pregnancy
CPT/HCPCS: 36415; 82951; 85025

== ENCOUNTER → 2022-09-08 10:30 | Outpatient (CLI) | payer BC, SELFPAY ==
--- NOTE | 2022-09-08 10:31 | US_ITS ---
FINAL REPORT CLINICAL HISTORY: lga and check JEANCARLOS FINDINGS: There is a single live intrauterine gestation. Presentation is cephalic. Placenta is posterior, grade 1. Heart rate is 136 beats per minute. AMNIOTIC FLUID: Appropriate amount. JEANCARLOS: 11.1 cm MEASUREMENTS: ULTRASOUND AGE: 34 weeks 1 day. GESTATION AGE: 32 weeks 5 days. ESTIMATED WEIGHT: 2289 g GROWTH PERCENTILE: 76% LMP percentile BPD: 8.6 cm corresponding with 34 weeks 6 days. OFD: 10.7 cm corresponding with 34 weeks 1 day. HC: 30.5 cm corresponding with 34 weeks 0 days. AC: 30.2 cm corresponding with 34 weeks 2 days. FL: 6.4 cm corresponding with 33 weeks 0 days. HC/AC: 1.01 CI: 80% FL/BPD: 74% FL/AC: 21% IMPRESSION: Single living IUP with an ultrasound age of 34 weeks 1 days. JEANCARLOS of 11.1 cm Reviewed, Interpreted and Dictated by Mabel Gan MD Transcribed by Majo Reaves Authenticated and [facility]
== END ==
PROVIDERS: PCP Family Medicine; Visit Provider Obstetrics & Gynecology
DX: O28.8 Other abnormal findings on antenatal screening of mother (principal); O36.60X0 Maternal care for excessive fetal growth, unspecified trimester, not applicable or unspecified
CPT/HCPCS: 76816

== ENCOUNTER → 2022-10-01 23:28 | Outpatient (CLI) | payer BC, SELFPAY | PROVIDERS: PCP Family Medicine; Visit Provider Obstetrics & Gynecology | DX: Z34.90 Encounter for supervision of normal pregnancy, unspecified, unspecified trimester (principal) | CPT/HCPCS: 86403 ==

== ENCOUNTER → 2022-10-07 16:57 | Outpatient (CLI) | payer BC, SELFPAY ==
--- NOTE | 2022-10-07 16:59 | US_ITS ---
FINAL REPORT CLINICAL HISTORY: LGA with JEANCARLOS FINDINGS: ULTRASOUND PELVIS/2ND TRIMESTER TECHNIQUE: Sonographic images of the gravid uterus were obtained. FINDINGS: Single intrauterine is present. Cardiac activity is confirmed. No anomalies are seen. JEANCARLOS is 17.9 cm which is normal. Placenta is fundal, grade 1. Presentation is cephalic. Growth parameters are as follows: BPD: 9.45 corresponding to 38 weeks 4 days Head circumference: 32.88 cm corresponding to 37 weeks 3 days Abdominal circumference: 34.71 cm corresponding to 38 weeks 5 days Femur length: 7.24 cm corresponding to 37 weeks 1 days heart rate: 133 bpm weight: 3401 g Estimated gestational age: 38 weeks 0 days IMPRESSION: Single living intrauterine with estimated gestational age of 38 weeks 0 days. Reviewed, Interpreted and Dictated by Wili Linton III, MD Transcribed by Lima Salazar Authenticated and . [facility]
== END ==
PROVIDERS: PCP Family Medicine; Visit Provider Obstetrics & Gynecology
DX: O36.60X0 Maternal care for excessive fetal growth, unspecified trimester, not applicable or unspecified (principal)
CPT/HCPCS: 76816

== ENCOUNTER 2022-10-25 15:56 | Inpatient (IN) | payer BC, SELFPAY ==
[2022-10-25 16:27] VITALS: BMI 46.3
[2022-10-25 16:53] LABS: Coronavirus 19, PCR Not Detected (NotDetected); Influenza A, PCR Not Detected (NotDetected); Influenza B, PCR Not Detected (NotDetected)
[2022-10-25 17:07] LABS: Basophils % 0.3 % (0.1-2.0); Eosinophils # 0.1 K/mm3 (0.0-0.4); Eosinophils % 0.7 % (0.1-12.0); Hematocrit 29.4 % (37.0-47.0); Hemoglobin 9.8 g/dL (12.2-16.2); Lymphocytes # 1.6 K/mm3 (0.7-4.5); Lymphocytes % 19.2 % (10-50); Mean Corpuscular HGB Conc 33.4 g/dL (31.8-35.4); Mean Corpuscular Hemoglobin 26.1 pg (27.0-31.2); Mean Corpuscular Volume 78.2 fl (81-99); Monocytes # 0.5 K/mm3 (0.1-1.0); Monocytes % 5.5 % (1.7-9.3); Neutrophils # 6.2 K/mm3 (1.8-7.8); Neutrophils % 74.2 % (37.0-80.0); Platelet Count 320 K/mm3 (142-424); Red Blood Count 3.76 M/mm3 (4.20-5.40); Red Cell Distribution Width 15.5 % (11.5-17.5); White Blood Count 8.3 K/mm3 (4.8-10.8)
[2022-10-25 17:18] VITALS: BP 127/85; PULSE 102; RESP 18; TEMP 36.7; O2SAT 99; BMI 46.3
[2022-10-25 19:44] VITALS: BP 127/70; PULSE 94; RESP 18; TEMP 36.9; O2SAT 100
[2022-10-25 21:49] LABS: Microscopic, Urine URINE MICROSCOPIC (MICROSCOPIC)
[2022-10-25 21:56] LABS: Appearance,Urine CLEAR (Clear); Bilirubin,Urine Negative (Negative); Blood, Urine Negative (Negative); Color,Urine YELLOW (Yellow); Glucose,Urine (UA) Negative (Negative); Ketones,Urine Negative (Negative); Leukocyte Esterase,Urine Negative (Negative); Nitrate,Urine Negative (Negative); Protein,Urine Negative (Negative); Specific Gravity, Urine >= 1.030 (1.005-1.030); Urobilinogen,Urine 0.2 EU/dl (0.2)
[2022-10-25 22:09] LABS: Bacteria,Urine Trace /lpf
[2022-10-25 22:12] LABS: Amphetamine/Metha Screen,Urine Negative ng/ml (<1000); Benzodiazepines Screen,Urine Negative ng/ml (<200)
[2022-10-25 22:13] LABS: Barbiturates Screen,Urine Negative ng/ml (<200); Cannabinoid Screen,Urine Negative ng/ml (<50)
[2022-10-25 22:14] LABS: Cocaine Screen,Urine Negative ng/ml (<300)
[2022-10-25 22:15] LABS: Methadone Screen,Urine Negative ng/ml (<300); Opiate Screen,Urine Negative ng/ml (<300)
[2022-10-25 22:16] LABS: Phencyclidine Screen,Urine Negative ng/ml (<25)
[2022-10-26 04:15] VITALS: BP 132/76; PULSE 99; RESP 17; TEMP 36.8; O2SAT 99
--- NOTE | 2022-10-26 11:03 | EXP.OB.APHP ---
OB - H&P: HPI Antepartum History of Present Illness Chief complaint: Scheduled induction of labor History of present illness: Ms Suzie Ellsworth is a 21 yo at 39w4d who presents to [facility] Labor and Delivery for scheduled elective induction of labor. She admits to occasional contractions. Baby is active. GBS negative. She has had good care. Growth ultrasound 10/07 demonstrated EFW 82 %ile. She has history of mitral valve regurgitation and takes Metoprolol 25 mg PO daily. History of Present Criteria for establishing EDC:: LMP confirmed by 1st trimester US care: good care Ultrasounds: normal mid trimester US Obstetrical complications: none Medical complications: cardiovascular (mitral valve regurgitation) Labs Blood type: A (+) positive Rubella: immune RPR/VDRL: nonreactive GBS status: negative HBsAG: negative [facility] Disclaimer: The information contained in this section may have been updated after the patient was seen, as this information can be updated by other users. Medical History (Updated 10/26/22 @ 15:15 by Nona De La Paz DO) Encounter for elective induction of labor Genetic carrier of other disease Heartburn during Maternal obesity affecting , antepartum with 39 completed weeks gestation Size of fetus inconsistent with dates in third trimester Surgical History Hx of cholecystectomy Hx of wisdom tooth extraction Family History Other Cancer Heart disease Social History Smoking Status: Current every day smoker tobacco type: e-cigarettes alcohol intake: never substance use type: denies use current occupational status: employed Travel in the last 8 weeks: None household members: significant other housing: house current occupation: [employer] caffeine: Yes Review of Systems Review of Systems Review of systems:: pertinent systems reviewed and negative unless documented below Meds Home Medications and Allergies Home Medications Medication Instructions Recorded Confirmed Type metoprolol succinate 25 mg 25 mg PO DAILY Rapid heart rate 10/31/19 10/26/22 History tablet,extended release 24 hr prenat.vits,kory,bqw-hyrc-cqwjj 1 tab PO DAILY Supplement 03/18/22 10/25/22 History New Prescriptions to Start Prescriptions: Allergies Allergy/AdvReac Type Severity Reaction Status Date / Time No Known Allergies Allergy Verified 10/20/22 09:50 OB - H&P: Exam Physical Exam Vital signs: Temp Pulse Resp BP Pulse Ox 98.2 F 99 H 17 132/76 99 10/26/22 04:15 10/26/22 04:15 10/26/22 04:15 10/26/22 04:15 10/26/22 04:15 Constitutional no acute distress Routine HEENT Exam Head: Present normocephalic and atraumatic Eye: Absent conjunctivae pink ENT: Present mucous membranes moist Routine Neck Exam Present full ROM Routine Respiratory Exam Present CTA bilaterally and normal respiratory effort Routine Cardiovascular Exam Present RRR Routine Abdominal Exam Present soft (Gravid); Absent tenderness Routine Rectal Exam Patient deferred: visual exam Routine Exam External: Present normal urethra appearance; Absent erythema, tenderness, lesions or vulvar erythema Routine Extremities Exam Present edema (+1 bilateral lower extremity edema) and full ROM; Absent calf tenderness Routine Neurological Exam Present alert, oriented X3 and moving all extremities Routine Psychiatric Exam Present normal affect and cooperative Detailed Labor and Delivery Exam Dilation (cm): 2 Effacement (%): 80 Cervix position: anterior station: -2 Consistency: soft Membranes: artificially ruptured (amniotomy performed at 1026, with amnihook without difficulty) Amniotic fluid: clear Baseline heart rate: 130 monitor accelerations: Present monitor deceler
--- NOTE | 2022-10-26 12:34 | P.PN_ITS ---
[facility] Disclaimer: The information contained in this section may have been updated after the patient was seen, as this information can be updated by other users. 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 [facility] carrier screen 04/15/22, negative for 13 of 14 conditions tested (including CF and Fragile X) Heartburn during Maternal obesity affecting , antepartum Size of fetus inconsistent with dates in third trimester Surgical History Hx of cholecystectomy Hx of wisdom tooth extraction Family History Other Cancer Heart disease Social History Smoking Status: Current every day smoker tobacco type: e-cigarettes alcohol intake: never substance use type: denies use current occupational status: employed Travel in the last 8 weeks: None household members: significant other housing: house current occupation: [employer] caffeine: Yes [facility] Anesthesia Checklist Patient Identification Patient Identification: Arm Band Structural Data Admitted From: Inpatient Planned Operative Procedure/s: Labor Epidural Consent for Planned Operative Procedure(s) Verified: Yes Verified Documents: Surgical Consent and History and Physical NPO Status Verified Time NPO: 00:00 Additional verifications Anesthesia Reactions: No Hx Blood Transfusions: No Blood Transfusion Reaction: No Airway Assessment C-Spine Mobility Assessed: Yes TMJ Mobility Assessed: Yes Neurological Assessment Level of Consciousness: Awake and Alert Anesthesia Plan Anesthesia Risk discussed: Yes Anesthesia Plan: Verified ASA Class: II Anesthesia Type: Epidural
--- NOTE | 2022-10-26 18:54 | EXP.DN ---
Delivery Note Delivery Date:: 10/26/22 Delivery Time:: 18:28 Anesthesia Type: Epidural Was labor medically induced?: No Induction method: per pitocin protocol Gestational age (weeks): 39 delivered prior to 39 weeks?: No Infant Gender: Male at 1 minute: 7 at 5 minutes: 9 LAC or MLE?: MLE Delivery Procedure:: Mom complete with epidural. Pushed for approximately 46 minutes. Midline episiotomy performed for tight perineal band and maternal exhaustion. Head delivered spontaneously over MLE in OA position. Nuchal cord x 1 easily reduced. Anterior shoulder delivered with gentle downward pressure. Posterior shoulder and remainder of body delivered spontaneously. Baby placed on maternal abdomen, mouth and nares bulb suctioned, warmed/dried and stimulated. Delayed cord clamping was performed for 60 seconds. Cord was clamped and cut by father of baby. Cord blood was obtained. Placenta delivered spontaneously and intact. MLE repaired with 3-0 Vicryl. Hemostasis noted. Mom and baby were skin to skin and doing well after delivery. Live male baby (baby's name is Toño Betts) APGARs 7, 9 EBL 250 mL Placental Delivery Description: Spontaneous
[2022-10-26 20:06] VITALS: BP 117/72; PULSE 102; RESP 18; TEMP 37; O2SAT 98
[2022-10-27 04:06] VITALS: BP 129/76; PULSE 100; RESP 18; TEMP 36.9; O2SAT 100
[2022-10-27 06:56] LABS: Basophils % 0.2 % (0.1-2.0); Eosinophils % 0.2 % (0.1-12.0); Hematocrit 24.4 % (37.0-47.0); Hemoglobin 8.3 g/dL (12.2-16.2); Lymphocytes # 2.1 K/mm3 (0.7-4.5); Lymphocytes % 15.9 % (10-50); Mean Corpuscular HGB Conc 33.9 g/dL (31.8-35.4); Mean Corpuscular Hemoglobin 26.5 pg (27.0-31.2); Mean Corpuscular Volume 78.3 fl (81-99); Mean Platelet Volume 9.2 fl (7.4-10.4); Monocytes # 0.7 K/mm3 (0.1-1.0); Monocytes % 5.2 % (1.7-9.3); Neutrophils # 10.3 K/mm3 (1.8-7.8); Neutrophils % 78.6 % (37.0-80.0); Platelet Count 260 K/mm3 (142-424); Red Blood Count 3.12 M/mm3 (4.20-5.40); Red Cell Distribution Width 15.6 % (11.5-17.5); White Blood Count 13.2 K/mm3 (4.8-10.8)
--- NOTE | 2022-10-27 09:33 | SW/DCPLANNER ---
ON nursing staff provided [facility] Resource List to this patient.
--- NOTE | 2022-10-27 12:35 | EXP.ACUTE.PN ---
Subjective *Date: 10/27/22 *Time: 12:35 Interval history: PPD # 1 s/p Resting comfortably. Pain controlled. She is breast and bottle feeding. Lochia is appropriate. Voiding without difficulty and passing flatus. Tolerating regular diet. No headaches, vision changes, RUQ pain. Admits to some lower extremity swelling. No calf pain. Medical Exam Vital signs and Labs for Last 24 Hours: Vital Signs Temp Pulse Resp BP Pulse Ox 10/27/22 04:06 98.4 F 100 H 18 129/76 100 10/26/22 20:06 98.6 F 102 H 18 117/72 98 Laboratory Results - last 24 hr 10/27/22 06:32: WBC 13.2 H D, RBC 3.12 L, Hgb 8.3 L, Hct 24.4 L, MCV 78.3 L, MCH 26.5 L, MCHC 33.9, RDW 15.6, Plt Count 260, MPV 9.2, Neut % (Auto) 78.6, Lymph % (Auto) 15.9, Sutton % (Auto) 5.2, Eos % (Auto) 0.2, Baso % (Auto) 0.2, Neut # (Auto) 10.3 H, Lymph # (Auto) 2.1, Sutton # (Auto) 0.7, Eos # (Auto) 0.0, Baso # (Auto) 0.0 I & O for Labs for Last 24 Hours: Intake & Output 10/24/22 10/25/22 10/26/22 10/27/22 23:59 23:59 23:59 23:59 Weight 270 lb Head: Present atraumatic and normocephalic ENT: Present normal exam and mucous membranes moist Neck: Present normal inspection and full ROM Respiratory: Present CTA bilaterally and normal respiratory effort Cardiac: Present Reg Rate and Rhythm GI: Present soft; Absent distention or tenderness Rectal (female): Present deferred (female): Present deferred Extremities: Present full ROM and edema (+1 bilateral lower extremity edema); Absent calf tenderness Neuro: Present alert, awake, oriented x 3 and moves all extremities Assessment and Plan *Assessment and plan (1) with 39 completed weeks gestation: Status: Acute Category: Medical Code(s): Z3A.39 - 39 weeks gestation of (2) Encounter for elective induction of labor: Status: Acute Category: Medical Code(s): Z34.90 - Encounter for supervision of normal , unspecified, unspecified trimester (3) Heartburn during : Status: Acute Category: Medical Code(s): O26.899 - Other specified related conditions, unspecified trimester; R12 - Heartburn (4) Size of fetus inconsistent with dates in third trimester: Status: Acute Category: Medical Code(s): O26.843 - Uterine size-date discrepancy, third trimester (5) Maternal obesity affecting , antepartum: Status: Acute Category: Medical Code(s): O99.210 - Obesity complicating , unspecified trimester (6) Mitral valve regurgitation: Status: Acute Qualifiers: Cardiac valve disease etiology: etiology unspecified Qualified Code(s): I34.0 - Nonrheumatic mitral (valve) insufficiency Category: Medical Code(s): I34.0 - Nonrheumatic mitral (valve) insufficiency (7) ADD (attention deficit disorder): Status: Acute Category: Medical Code(s): F98.8 - Other specified behavioral and emotional disorders with onset usually occurring in childhood and adolescence (8) Depression: Status: Acute Category: Medical Code(s): F32.A - Depression, unspecified (9) Acute blood loss anemia: Status: Acute Category: Medical Code(s): D62 - Acute posthemorrhagic anemia Plan Continue routine care Encouraged increased ambulation Venofer 200 mg IV x 1 dose Plan d/c home tomorrow
[2022-10-27 20:06] VITALS: BP 125/76; PULSE 92; RESP 17; TEMP 36.8; O2SAT 100
[2022-10-28 04:00] VITALS: BP 123/67; PULSE 90; RESP 17; TEMP 36.9; O2SAT 100
[2022-10-28 08:52] VITALS: BP 123/70; PULSE 95; RESP 18; TEMP 36.7; O2SAT 100
--- NOTE | 2022-10-28 09:14 | EXP.DC.SUM ---
General Admission date:: 10/25/22 Discharge date: 10/28/22 HPI HPI HPI: PPD # 2 s/p Feeling well. Denies pain. Light lochia. She is formula feeding but trying to pump. She admits her supply is very minimal. Voiding without difficulty and passing flatus. Tolerating regular diet. Denies headaches and vision changes. No lower extremity swelling. Hospital Course Hospital Course Hospital Course: Ms Suzie Ellsworth is a 21 yo at 39w4d who presents to [facility] Labor and Delivery for scheduled elective induction of labor. She admits to occasional contractions. Baby is active. GBS negative. She has had good care. Growth ultrasound 10/07 demonstrated EFW 82 %ile. She has history of mitral valve regurgitation and takes Metoprolol 25 mg PO daily. She bad a normal spontaneous vaginal delivery with midline episiotomy on 10/26/22 at 1828. She delivered a live male baby (baby's name is Toño) weiging 8 lb 5 oz. APGARs 7, 9. EBL 250 mL She is doing well . Pain controlled. Light lochia. Formula feeding but trying to pump. Tolerating regular diet. Voiding without difficulty and passing flatus. Vital signs stable, afebrile. Heart regular rate and rhythm. Lungs clear to auscultation. Abdomen soft, nontender. No lower extremity edema. She had acute blood loss anemia superimposed on anemia of . Hgb on PPD # 1 was 8.3. She received Venofer 200 mg IV x 1 dose. Normal hospital course. She was discharged home on PPD # 2 doing well. She will follow-up in office in 2 weeks. Exam Data for Last 24 hours Vital signs and Labs for Last 24 Hours: Temp Pulse Resp BP Pulse Ox 98.4 F 90 17 123/67 100 10/28/22 04:00 10/28/22 04:00 10/28/22 04:00 10/28/22 04:00 10/28/22 04:00 I & O for Last 24 hours: Intake & Output 10/25/22 10/26/22 10/27/22 10/28/22 23:59 23:59 23:59 23:59 Weight 270 lb Constitutional Constitutional: no acute distress *Routine HEENT Exam Head: Present normocephalic and atraumatic Eye: Absent conjunctivae pink ENT: Present mucous membranes moist and dentition normal *Routine Neck Exam Neck: Present full ROM *Routine Respiratory Exam Respiratory: Present CTA bilaterally and normal respiratory effort *Routine Cardiovascular Exam Cardiovascular: Present RRR *Routine Abdominal Exam Abdominal: Present soft and normoactive bowel sounds; Absent tenderness or distended Comments: Uterine fundus firm and below umbilicus *Routine Rectal Exam Patient deferred: visual exam *Routine Exam Patient deferred: external exam *Routine Extremities Exam Extremities: Present full ROM; Absent edema or calf tenderness *Routine Neurological Exam Neurological: Present alert, oriented X3 and moving all extremities Routine Psychiatric Exam Psychiatric: Present normal affect and cooperative DS: Diagnosis Discharge Diagnosis (1) with 39 completed weeks gestation: Status: Acute (2) Encounter for elective induction of labor: Status: Acute (3) Heartburn during : Status: Acute (4) Size of fetus inconsistent with dates in third trimester: Status: Acute (5) Maternal obesity affecting , antepartum: Status: Acute (6) Mitral valve regurgitation: Status: Acute (7) ADD (attention deficit disorder): Status: Acute (8) Depression: Status: Acute (9) Acute blood loss anemia: Status: Acute Meds Home Medications and Allergies Home Medications Medication Instructions Recorded Confirmed Type metoprolol succinate 25 mg 25 mg PO DAILY Rapid heart rate 10/31/19 10/26/22 History tablet,extended release 24 hr prenat.vits,kory,alq-rull-hhxps 1 tab PO DAILY Supplement 03/18/22 10/25/22 History ibuprofen 400 mg tablet 800 mg PO Q8HP PRN Mild To 10/28/22 Rx Moderate Pain #40 tabs New Prescriptions to Start Prescriptions: Nona Mesa Allergies Allergy/AdvReac Type Severity Reaction
== END 2022-10-28 13:00 | disposition home or self-care (01) | DRG 806 ==
PROVIDERS: Admitting Provider Obstetrics & Gynecology; PCP Family Medicine; Visit Provider Obstetrics & Gynecology
DX: O69.81X0 Labor and delivery complicated by cord around neck, without compression, not applicable or unspecified (principal); D62 Acute posthemorrhagic anemia; Z37.0 Single live birth; O90.81 Anemia of the puerperium; O99.214 Obesity complicating childbirth; Z23 Encounter for immunization
CPT/HCPCS: 59409; 36415; 59025; 80305; 81001; 85025; 86850; 87636; 94761; C1758; C9803; G0283; J0595; J1756; J2405; U0003; U0005

== ENCOUNTER 2025-03-13 11:51 | Outpatient (CLI) | payer BC, SELFPAY ==
--- OUTSIDE RECORDS SUMMARY | 2024-01-06 05:45 | XMS_ITS ---
Author Organization [facility] Address [address] [place] [phone] Care Team Providers Care Administrative Support Coordinator Name Role Phone Iraj Longoria Primary Care [...] Encounters Encounter Location Date Provider Diagnosis [facility] [address] [place] [address] [place] [phone] 01/06/2024 Iraj Longoria Attention deficit disorder F90.0 [...] Notes * Suzie ELLSWORTHDOB:2000 (24 yo F)Acc No.[id number]:01/06/2024 Patient: Suzie JONES Provider: Iraj Longoria M.D. :2000 A ge:23 Y S ex:Female Date:01/06/2024 Address:[address] [place] [address], [place], [id number] Subjective: * Chief Complaints: * 1 . [...] * Images: Billing Information: * Visit Code: 44092 Office Visit, Est Pt., Level 3. * Procedure Codes: 56398 PULSE OX. * Electronic signature of Iraj Longoria MD on 03/13/2025 at 11:54 AM EDT Sign off status: Pending * Provider: Iraj Longoria M.D. Date: 0 01/06/2024 Generated for Rani french/José Miguel/Garcia on: 0 03/13/2025 11:54 AM EDT History and Physical Notes * HPI (History of Present Illness) Category Sub-Category Detail Notes Category Not es Psychology ADD[facility] Pt [...]
--- OUTSIDE RECORDS SUMMARY | 2024-04-06 05:00 | XMS_ITS ---
Author Organization [facility] Address 1210 [facility] [address] [place] [phone] Care Team Providers Care Radio Control Crane Operator Name Role Phone Iraj Longoria Primary Care Provider [phone] Allergies No Known Allergies REASON FOR VISIT [...] Encounter Location Date Provider Diagnosis [facility] 1210 [facility] [address] [place] [phone] 04/06/2024 Iraj Longoria Attention deficit disorder F90.0 [...] Notes * Suzie ELLSWORTHDOB:2000 (24 yo F)Acc No.[id number]:04/06/2024 Progress Notes Patient: Suzie JONES Provider: Iraj Longoria M.D. :2000 A ge:23 Y S ex:Female Date:04/06/2024 Address:[address], [id number] Subjective: * Chief Complaints: * 1 . [...] * Images: Billing Information: * Visit Code: 16206 Office Visit, Est Pt., Level 3. * Procedure Codes: * Electronic signature of Iraj Longoria MD on 03/13/2025 at 11:54 AM EDT Sign off status: Pending * Provider: Iraj Longoria M.D. Date: Generated for Rani french/José Miguel/eTransmitting on: 0 03/13/2025 11:54 AM EDT History and Physical Notes * Examination Category Sub-Category Detail Notes Category Not es General Examination Heart: RSR Lungs: clear to auscultatio n Extremities: no leg edema General Appearance: NAD. Affect good
--- OUTSIDE RECORDS SUMMARY | 2024-07-06 05:45 | XMS_ITS ---
Author Organization [facility] Address 1210 [facility] [address] [place] [phone] Care Team Providers Care Claims Account Specialist Name Role Phone Iraj Longoria Primary Care [...] Location Date Provider Diagnosis [facility] 1210 [facility] [address] [place] [phone] 07/06/2024 Iraj Longoria Attention deficit disorder F90.0 [...] Notes * Suzie ELLSWORTHDOB:2000 (24 yo F)Acc No.[id number]:07/06/2024 Progress Notes Patient: Suzie JONES Provider: Iraj Longoria M.D. :2000 A ge:23 Y S ex:Female Date:07/06/2024 Address:[address] [place] [address], [place], [id number] Subjective: * Chief Complaints: * 1 . [...] * Images: Billing Information: * Visit Code: 42175 Office Visit, Est Pt., Level 3. * Procedure Codes: * Electronic signature of Iraj Longoria MD on 03/13/2025 at 11:54 AM EDT Sign off status: Pending * Provider: Iraj Longoria M.D. Date: 0 07/06/2024 Generated for Rani french/José Miguel/Nimishaitting on: 0 03/13/2025 11:54 AM EDT
--- OUTSIDE RECORDS SUMMARY | 2024-10-05 05:00 | XMS_ITS ---
Author Organization [facility] Address [address] [place] [phone] Care Team Providers Care Rn Gynecology Name Role Phone Iraj Longoria Primary Care Provider [phone] Allergies No Known Allergies REASON FOR VISIT [...] Encounter Location Date Provider Diagnosis [facility] [address] [place] [id number] 10/05/2024 Iraj Longoria Attention deficit disorder F90.0 [...] Notes * [place] ELLSWORTH:2000 (24 yo F)Acc No.[id number]:10/05/2024 Progress Notes Patient: Suzie JONES Provider: Iraj Longoria M.D. :2000 A ge:23 Y S ex:Female Date:10/05/2024 Address:[address] [place] [address], [place], [id number] Subjective: * Chief Complaints: * 1 . [...] * Images: Billing Information: * Visit Code: 25772 Office Visit, Est Pt., Level 3. * Procedure Codes: 3074F SYST BP LT 130 MM HG. 3079F DIAST BP 80-89 MM HG. * Electronic signature of Iraj Longoria MD on 03/13/2025 at 11:54 AM EDT Sign off status: Pending * Provider: Iraj Longoria M.D. Date: 0 10/05/2024 Generated for Rani french/José Miguel/eTransmitting on: 0 [...]
--- OUTSIDE RECORDS SUMMARY | 2025-01-09 06:30 | XMS_ITS ---
Author Organization [facility] Address 1210 [facility] [address] [place] [phone] Care Team Providers Care Bariatric Nurse Name Role Phone Iraj Longoria Primary Care [...] Encounter Location Date Provider Diagnosis [facility] 1210 [facility] [address] [place] [phone] 01/09/2025 Iraj Longoria Attention deficit disorder F90.0 [...] Notes * Suzie ELLSWORTHDOB:2000 (24 yo F)Acc No.[id number]:01/09/2025 Progress Notes Patient: Suzie JONES Provider: Iraj Longoria M.D. :2000 A ge:24 Y S ex:Female Date:01/09/2025 Address:[address], [place], [id number] Subjective: * Chief Complaints: * 1 . [...] * Images: Billing Information: * Visit Code: 39148 Office Visit, Est Pt., Level 3. * Procedure Codes: 1036F TOBACCO NON-USER. 3075F SYST BP GE 130 - 139MM HG. 3079F DIAST BP 80-89 MM HG. * Electronic signature of Iraj Longoria MD on 03/13/2025 at 11:54 AM EDT Sign off status: Pending * Provider: Iraj Longoria M.D. Date: 0 01/09/2025 Generated for Rani french/José Miguel/Nimishaitting on: 0 03/13/2025 11:54 AM EDT History and Physical Notes * HPI (History of Present Illness) Category Sub-Category Detail Notes Category Not es Psychology She is planning to have her IUD removed and she and her are trying to get .
--- OUTSIDE RECORDS SUMMARY | 2025-03-13 11:55 | XMS_ITS | Patient Health Record ---
Author Organization [facility] Address [address] [place] [phone] Care Team Providers Care Fire Control Mechanic Name Role Phone Iraj Longoria Primary Care Provider Sumeet Morales Unavailable [phone] Allergies No Known Allergies Reason For Referral No Information Medications Medication SIG (Take, Route, Frequency, Duration) Notes Start Date End Date Status Fernanda Fe 07/03 1-20 MG-MCG Take 1 tablet by mouth once daily; Duration: Not-Sunil ing Metoprolol Succinate ER 50 MG 1 tablet Orally Once a day Active Immunizations Vaccine Route Administration Date Status Comme nts xGardasil Unknown 01/15/2010 Administered Tetanus Tdap-Adacel (over 7yrs) Unknown 01/15/2010 Admi nistered Tetanus Tdap-Adacel (over 7yrs) Unknown 08/19/2022 Admi nistered Fluzone PF Quad (6-35 months) Unknown 04/18/2019 Admini stered Problems Problem Type SNOMED Code ICD Code Onset Dates Problem Status W/U Status Risk Notes Problem Tachycardia (1679969) Tachycardia (R00.0) Active confirmed Problem Dysfunctional uterine bleeding (07639789232337) Dysfunctional uterine bleeding (N93.8) Active confirmed Problem Depressive disorder (87342548) Depressive disorder (F32.9) Active confirmed Problem Attention deficit disorder (91177745) Attention deficit disorder (F90.0) Active confirmed Problem Body mass index 40+ - morbidly obese (904242746) BMI 40.0-44.9, adult (Z68.41) Active confirmed Problem Tonsillith (5498820) Tonsillith (J35.8) Active confirmed Vital Signs Heart Rate 90 /min 01/09/2025 Blood pressure diastolic 80 mm Hg 01/09/2025 Height 64.50 in 01/09/2025 Blood pressure systolic 138 mm Hg 01/09/2025 Weight 239.4 lbs 01/09/2025 BMI 40.45 kg/m2 01/09/2025 Encounters Encounter Location Date Provider Diagnosis [facility] [address] [place], [place] [id number] 04/06/2024 R Denis Von Attention deficit disorder F90.0 and Tachycardia R00.0 [facility] [address] [place], [place] [id number] 07/06/2024 R Denis Von Attention deficit disorder F90.0 and Tachycardia R00.0 [facility] [address] [place], [place] [id number] 10/05/2024 R Denis Von Attention deficit disorder F90.0 and Tachycardia R00.0 [facility] [address] [place], [place] [id number] 01/09/2025 R Denis Von Attention deficit disorder F90.0 and Tachycardia R00.0 [facility] [address] [place], [place] [id number] 05/18/2024 R Denis Von Attention deficit disorder F90.0 [facility] [address] [place], [place] [id number] 06/27/2024 R Denis Von Attention deficit disorder F90.0 [facility] [address] [place], [place] [id number] 08/16/2024 R Denis Von Attention deficit disorder F90.0 [facility] [address] [place], [place] [id number] 09/20/2024 R Denis Von Attention deficit disorder F90.0 [facility] [address] [place], [place] [id number] 10/23/2024 Sumeet Donnellson Attention deficit disorder F90.0 [facility] [address] [place], [place] [id number] 11/28/2024 Iraj Longoria Attention deficit disorder F90.0 [facility] [address] [place] [id number] 01/05/2025 Sumeet Morales Attention deficit disorder F90.0 Assessments Encounter Date Diagnosis (ICD Code) Assessment Notes Treatment Notes Treatment Clinical Notes Section Notes 04/06/2024 Tachycardia (ICD-10 - R00.0) 04/06/2024 Attention deficit disorder (ICD-10 - F90.0) 05/18/2024 Attention deficit disorder (ICD-10 - F90.0) 06/27/2024 Attention deficit disorder (ICD-10 - F90.0) 07/06/2024 Tachycardia (ICD-10 - R00.0) 07/06/2024 Attention deficit disorder (ICD-10 - F90.0) Capsule formulation will be started when due for next refill. 08/16/2024 Attention deficit disorder (ICD-10 - F90.0) 09/20/2024 Attention deficit disorder (ICD-10 - F90.0) 10/05/2024 Tachycardia (ICD-10 - R00.0) 10/05/2024 Attention deficit disorder (ICD-10 - F90.0) 10/23/2024 Attention deficit disorder (ICD-10 - F90.0) 11/28/2024 Attention deficit disorder (ICD-10 - F90.0) 01/05/2025 Attention deficit disorder (ICD-10 - F90.0) 01/09/2025 Tachycardia (ICD-10 - R00.0) 01/09/2025 Attention deficit disorder (ICD-10 - F90.0) Advised to discontinue Vyvanse while trying to get and throughout the duration of her . Plan Of Treatment No Information Insurance Providers Payer Name Payer Address Payer Phone Subscriber Number Group Number Insured Name Patient Relationship to Insured Coverage Start Date Coverage End Date [employer] [address] [place] [address] [id number] 1ESuzie Mota Self - patient is the insured Medical (General) History Medical History History ICD Code ADHD Tachycardia COVID 09/2020 Surgical History Surgery Date(Month/Year) Moisés Quinn 11/01/2019 Hospitalization History Reason Date(Month/Year) [facility] - Child 10/26/2022
== END 2025-03-13 23:59 | disposition home or self-care (01) ==
LOC: LAB 11:52
PROVIDERS: PCP Family Medicine; Visit Provider Obstetrics & Gynecology
DX: Z34.90 Encounter for supervision of normal pregnancy, unspecified, unspecified trimester (principal); N92.6 Irregular menstruation, unspecified; Z3A.00 Weeks of gestation of pregnancy not specified
CPT/HCPCS: 36415; 84144; 84702

== ENCOUNTER 2025-03-15 09:16 | Outpatient (CLI) | payer BC, SELFPAY ==
--- OUTSIDE RECORDS SUMMARY | 2024-01-06 05:45 | XMS_ITS ---
Author Organization [facility] Address [address] [place] [phone] Care Team Providers Care Computer Applications Developer Name Role Phone Iraj Longoria Primary Care [...] Encounters Encounter Location Date Provider Diagnosis [facility] [address] [place] [address] [place] [phone] 01/06/2024 Iraj Longoria Attention deficit disorder F90.0 [...] Notes * Suzie ELLSWORTHDOB:2000 (24 yo F)Acc No.[id number]:01/06/2024 Patient: Suzie JONES Provider: Iraj Longoria M.D. :2000 A ge:23 Y S ex:Female Date:01/06/2024 Address:[address] [place] [address], [place], [id number] Subjective: * Chief Complaints: * 1 . [...] * Images: Billing Information: * Visit Code: 92845 Office Visit, Est Pt., Level 3. * Procedure Codes: 16411 PULSE OX. * Electronic signature of Iraj Longoria MD on 03/15/2025 at 09:19 AM EDT Sign off status: Pending * Provider: Iraj Longoria M.D. Date: 0 01/06/2024 Generated for Rani french/José Miguel/Garcia on: 1 09:19 AM EDT History and Physical Notes * HPI (History of Present Illness) Category Sub-Category Detail Notes Category Not es Psychology ADD[facility] [...]
--- OUTSIDE RECORDS SUMMARY | 2024-04-06 05:00 | XMS_ITS ---
Author Organization [facility] Address 1210 [facility] [address] [place]IG[place] [phone] Care Team Providers Care Music Intern Name Role Phone Iraj Longoria Primary Care [...] Encounter Location Date Provider Diagnosis [facility] 1210 [facility] [address] [place] [phone] 04/06/2024 Iraj Longoria Attention deficit disorder F90.0 [...] Notes * Suzie ELLSWORTHDOB:2000 (24 yo F)Acc No.[id number]:04/06/2024 Progress Notes Patient: Suzie JONES Provider: Iraj Longoria M.D. :2000 A ge:23 Y S ex:Female Date:04/06/2024 Address:[address], [id number] Subjective: * Chief Complaints: * 1 . [...] * Images: Billing Information: * Visit Code: 98854 Office Visit, Est Pt., Level 3. * Procedure Codes: * Electronic signature of Iraj Longoria MD on 03/15/2025 at 09:20 AM EDT Sign off status: Pending * Provider: Iraj Longoria M.D. Date: Generated for Rani french/José Miguel/eTransmitting on: 09:20 AM EDT History and Physical Notes * Examination Category Sub-Category Detail Notes Category Not es General Examination Heart: RSR Lungs: clear to auscultatio n Extremities: no leg edema General Appearance: NAD. Affect good
--- OUTSIDE RECORDS SUMMARY | 2024-07-06 05:45 | XMS_ITS ---
Author Organization [facility] Address 1210 [facility] [address] [place] [phone] Care Team Providers Care Master Deputy Sheriff Court Security Name Role Phone Iraj Longoria Primary Care [...] Encounter Location Date Provider Diagnosis [facility] 1210 [facility] [address] [place] [phone] 07/06/2024 Iraj Longoria Attention deficit disorder F90.0 [...] Notes * Suzie ELLSWORTHDOB:2000 (24 yo F)Acc No.[id number]:07/06/2024 Progress Notes Patient: Suzie JONES Provider: Iraj Longoria M.D. :2000 A ge:23 Y S ex:Female Date:07/06/2024 Address:[address] [place] [address], [place], [id number] Subjective: * Chief Complaints: * 1 . [...] * Images: Billing Information: * Visit Code: 36167 Office Visit, Est Pt., Level 3. * Procedure Codes: * Electronic signature of Iraj Longoria MD on 03/15/2025 at 09:19 AM EDT Sign off status: Pending * Provider: Iraj Longoria M.D. Date: 0 07/06/2024 Generated for Rani french/José Miguel/Garcia on: 09:19 AM EDT
--- OUTSIDE RECORDS SUMMARY | 2024-10-05 05:00 | XMS_ITS ---
Author Organization [facility] Address [address] [place] [phone] Care Team Providers Care Print Buyer Name Role Phone Iraj Longoria Primary Care [...] Encounter Location Date Provider Diagnosis [facility] [address] [place] [id number] 10/05/2024 Iraj Longoria Attention deficit disorder F90.0 [...] Notes * [place] ELLSWORTH:2000 (24 yo F)Acc No.[id number]:10/05/2024 Progress Notes Patient: Suzie JONES Provider: Iraj Longoria M.D. :2000 A ge:23 Y S ex:Female Date:10/05/2024 Address:[address] [place] [address], [place], [phone] Subjective: * Chief Complaints: * 1 . [...] * Images: Billing Information: * Visit Code: 51991 Office Visit, Est Pt., Level 3. * Procedure Codes: 3074F SYST BP LT 130 MM HG. 3079F DIAST BP 80-89 MM HG. * Electronic signature of Iraj Longoria MD on 03/15/2025 at 09:19 AM EDT Sign off status: Pending * Provider: Iraj Longoria M.D. Date: 0 10/05/2024 Generated for Rani french/José Miguel/eTransmitting on: 1 09:19 AM EDT History and [...]
--- OUTSIDE RECORDS SUMMARY | 2025-01-09 06:30 | XMS_ITS ---
Author Organization [facility] Address 1210 [facility] [address] [place] [phone] Care Team Providers Care Replenishment Specialist Name Role Phone Iraj Longoria Primary [...] Encounter Location Date Provider Diagnosis [facility] 1210 [facility] [address] [place] [phone] 01/09/2025 Iraj Longoria Attention deficit disorder F90.0 [...] Notes * Suzie ELLSWORTHDOB:2000 (24 yo F)Acc No.[id number]:01/09/2025 Progress Notes Patient: Suzie JONES Provider: Iraj Longoria M.D. :2000 A ge:24 Y S ex:Female Date:01/09/2025 Address:[address], [place], [id number] Subjective: * Chief Complaints: * 1 . [...] * Images: Billing Information: * Visit Code: 60828 Office Visit, Est Pt., Level 3. * Procedure Codes: 1036F TOBACCO NON-USER. 3075F SYST BP GE 130 - 139MM HG. 3079F DIAST BP 80-89 MM HG. * Electronic signature of Iraj Longoria MD on 03/15/2025 at 09:20 AM EDT Sign off status: Pending * Provider: Iraj Longoria M.D. Date: 0 01/09/2025 Generated for Rani french/José Miguel/Nimishaitting on: 09:20 AM EDT History and Physical Notes * HPI (History of Present Illness) Category Sub-Category Detail Notes Category Not es Psychology She is planning to have her IUD removed and she and her are trying to get .
--- OUTSIDE RECORDS SUMMARY | 2025-03-15 09:20 | XMS_ITS | Patient Health Record ---
Author Organization [facility] Address [address] [place] [phone] Care Team Providers Care Clinical Trainer Name Role Phone Iraj Longoria Primary Care Provider Sumeet Morales Unavailable [phone] Allergies No Known Allergies Reason For Referral [...] Status W/U Status Risk Notes Problem Tachycardia (9915361) Tachycardia (R00.0) Active confirmed Problem Dysfunctional uterine bleeding (20912968146488) Dysfunctional uterine bleeding (N93.8) Active confirmed Problem Depressive disorder (86868065) Depressive disorder (F32.9) Active confirmed Problem Attention deficit disorder (26473652) Attention deficit disorder (F90.0) Active confirmed Problem Body mass index 40+ - morbidly obese (881710298) BMI 40.0-44.9, adult (Z68.41) Active confirmed Problem Tonsillith (4996601) Tonsillith (J35.8) Active confirmed Vital Signs Heart Rate 90 /min 01/09/2025 Blood pressure diastolic 80 mm Hg 01/09/2025 Height 64.50 in 01/09/2025 Blood pressure systolic 138 mm Hg 01/09/2025 Weight 239.4 lbs 01/09/2025 BMI 40.45 kg/m2 01/09/2025 Encounters Encounter Location Date Provider Diagnosis [facility] [address] [place], [place] [id number] 04/06/2024 R Denis Von Attention deficit disorder F90.0 and Tachycardia R00.0 [facility] [address] [place], [place] [id number] 07/06/2024 R Denis Von Attention deficit disorder F90.0 and Tachycardia R00.0 [facility] [address] [place], [place] [id number] 10/05/2024 R Denis Von Attention deficit disorder F90.0 and Tachycardia R00.0 [facility] [address] [place], [place] [id number] 01/09/2025 R Denis Von Attention deficit disorder F90.0 and Tachycardia R00.0 [facility] [address] [place], [place] [id number] 05/18/2024 R Denis Von Attention deficit disorder F90.0 [facility] [address] [place] [id number] 06/27/2024 R Denis Von Attention deficit disorder F90.0 [facility] [address] [place], [place] [id number] 08/16/2024 R Denis Von Attention deficit disorder F90.0 [facility] [address] [place], [place] [id number] 09/20/2024 R Denis Von Attention deficit disorder F90.0 [facility] [address] [place], [place] [id number] 10/23/2024 Sumeet Jackpot Attention deficit disorder F90.0 [facility] [address] [place], [place] [id number] 11/28/2024 Iraj Longoria Attention deficit disorder F90.0 [facility] [address] [place] [id number] 01/05/2025 Sumeet Morales Attention deficit disorder F90.0 [...] [employer] [address] [place] [address] [id number] 1ESuzie Mota Self - patient is the insured Medical (General) History Medical History History ICD Code ADHD Tachycardia COVID 09/2020 Surgical History Surgery Date(Month/Year) Moisés Quinn 11/01/2019 Hospitalization History Reason Date(Month/Year) [facility] - Child 10/26/2022
== END 2025-03-15 23:59 | disposition home or self-care (01) ==
LOC: LAB 09:17
PROVIDERS: PCP Family Medicine; Visit Provider Obstetrics & Gynecology
DX: Z34.90 Encounter for supervision of normal pregnancy, unspecified, unspecified trimester (principal); Z3A.00 Weeks of gestation of pregnancy not specified
CPT/HCPCS: 36415; 84702

== ENCOUNTER 2025-04-06 10:35 | Outpatient (CLI) | payer BC, SELFPAY ==
--- OUTSIDE RECORDS SUMMARY | 2024-01-06 05:45 | XMS_ITS ---
Author Organization [facility] Address [address] [place] [phone] Care Team Providers Care State Tested Nursing Assistant Name Role Phone Iraj Longoria Primary Care [...] Encounters Encounter Location Date Provider Diagnosis [facility] [address] [place] [address] [place] [phone] 01/06/2024 Iraj Longoria Attention deficit disorder F90.0 [...] Notes * Suzie ELLSWORTHDOB:2000 (24 yo F)Acc No.[id number]:01/06/2024 Patient: Suzie JONES Provider: Iraj Longoria M.D. :2000 A ge:23 Y S ex:Female Date:01/06/2024 Address:[address] [place] [address], [place], [id number] Subjective: * Chief Complaints: * 1 . [...] * Images: Billing Information: * Visit Code: 56303 Office Visit, Est Pt., Level 3. * Procedure Codes: 36433 PULSE OX. * Electronic signature of Iraj Longoria MD on 04/06/2025 at 10:39 AM EDT Sign off status: Pending * Provider: Iraj Longoria M.D. Date: 0 01/06/2024 Generated for Rani french/José Miguel/Garcia on: 1 10:39 AM EDT History and Physical Notes * HPI (History of Present Illness) Category Sub-Category Detail Notes Category Not es Psychology ADD/ADHD [facility]. Pt [...]
--- OUTSIDE RECORDS SUMMARY | 2024-04-06 05:00 | XMS_ITS ---
Author Organization [facility] Address 1210 [facility] [address] [place] [phone] Care Team Providers Care Physician General Practice Name Role Phone Iraj Longoria Primary Care [...] Encounter Location Date Provider Diagnosis [facility] 1210 [facility] [address] [place] [phone] 04/06/2024 Iraj Longoria Attention deficit disorder F90.0 [...] Notes * Suzie ELLSWORTHDOB:2000 (24 yo F)Acc No.[id number]:04/06/2024 Progress Notes Patient: Suzie JONES Provider: Iraj Longoria M.D. :2000 A ge:23 Y S ex:Female Date:04/06/2024 Address:[address], [id number] Subjective: * Chief Complaints: * 1 . [...] * Images: Billing Information: * Visit Code: 83383 Office Visit, Est Pt., Level 3. * Procedure Codes: * Electronic signature of Iraj Longoria MD on 04/06/2025 at 10:39 AM EDT Sign off status: Pending * Provider: Iraj Longoria M.D. Date: Generated for Rani french/José Miguel/eTransmitting on: 10:39 AM EDT History and Physical Notes * Examination Category Sub-Category Detail Notes Category Not es General Examination Heart: RSR Lungs: clear to auscultatio n Extremities: no leg edema General Appearance: NAD. Affect good
--- OUTSIDE RECORDS SUMMARY | 2024-07-06 05:45 | XMS_ITS ---
Author Organization [facility] Address [address] [place] [phone] Care Team Providers Care Senior Electronics Design Engineer Name Role Phone Iraj Longoria Primary Care Provider [phone] Allergies No Known Allergies REASON FOR VISIT [...] Encounter Location Date Provider Diagnosis [facility] 1210 [facility] [address] [place] [phone] 07/06/2024 Iraj Longoria Attention deficit disorder F90.0 [...] Notes * Suzie ELLSWORTHDOB:2000 (24 yo F)Acc No.[id number]:07/06/2024 Progress Notes Patient: Suzie JONES Provider: Iraj Longoria M.D. :2000 A ge:23 Y S ex:Female Date:07/06/2024 Address:[address] [place] [address], [place], [id number] Subjective: * Chief Complaints: * 1 . [...] * Images: Billing Information: * Visit Code: 90504 Office Visit, Est Pt., Level 3. * Procedure Codes: * Electronic signature of Iraj Longoria MD on 04/06/2025 at 10:39 AM EDT Sign off status: Pending * Provider: Iraj Longoria M.D. Date: 0 07/06/2024 Generated for Rani french/José Miguel/Nimishaitting on: 10:39 AM EDT
--- OUTSIDE RECORDS SUMMARY | 2024-10-05 05:00 | XMS_ITS ---
Author Organization [facility] Address [address] [place] [phone] Care Team Providers Care Slitting Machine Operator Helper Name Role Phone Iraj Longoria Primary Care [...] Encounter Location Date Provider Diagnosis [facility] [address] [place] [phone] 10/05/2024 Iraj Longoria Attention deficit disorder F90.0 [...] Notes * [place]yenne ELLSWORTH:2000 (24 yo F)Acc No.[id number]:10/05/2024 Progress Notes Patient: Suzie JONES Provider: Iraj Longoria M.D. :2000 A ge:23 Y S ex:Female Date:10/05/2024 Address:[address] [place] [address], [place], [id number] Subjective: * Chief Complaints: * 1 . [...] * Images: Billing Information: * Visit Code: 44708 Office Visit, Est Pt., Level 3. * Procedure Codes: 3074F SYST BP LT 130 MM HG. 3079F DIAST BP 80-89 MM HG. * Electronic signature of Iraj Longoria MD on 04/06/2025 at 10:39 AM EDT Sign off status: Pending * Provider: Iraj Longoria M.D. Date: 0 10/05/2024 Generated for Rani french/José Miguel/eTransmitting on: 10:39 [...]
--- OUTSIDE RECORDS SUMMARY | 2025-01-09 06:30 | XMS_ITS ---
Author Organization [facility] Address 1210 [facility] [address] [place] [phone] Care Team Providers Care Hospice Liaison Name Role Phone Iraj Longoria Primary Care [...] Encounter Location Date Provider Diagnosis [facility] 1210 [facility] [address] [place] [phone] 01/09/2025 Iraj Longoria Attention deficit disorder F90.0 [...] Notes * Suzie ELLSWORTHDOB:2000 (24 yo F)Acc No.[id number]:01/09/2025 Progress Notes Patient: Suzie JONES Provider: Iraj Longoria M.D. :2000 A ge:24 Y S ex:Female Date:01/09/2025 Address:[address], [place], [id number] Subjective: * Chief Complaints: * 1 . [...] * Images: Billing Information: * Visit Code: 25314 Office Visit, Est Pt., Level 3. * Procedure Codes: 1036F TOBACCO NON-USER. 3075F SYST BP GE 130 - 139MM HG. 3079F DIAST BP 80-89 MM HG. * Electronic signature of Iraj Longoria MD on 04/06/2025 at 10:39 AM EDT Sign off status: Pending * Provider: Iraj Longoria M.D. Date: 0 01/09/2025 Generated for Rani french/José Miguel/Nimishaitting on: 10:39 AM EDT History and Physical Notes * HPI (History of Present Illness) Category Sub-Category Detail Notes Category Not es Psychology She is planning to have her IUD removed and she and her are trying to get .
--- OUTSIDE RECORDS SUMMARY | 2025-04-06 10:40 | XMS_ITS | Patient Health Record ---
[facility] Organization [facility] Address [address] [place] [id number] Care Team Providers Care Clinical Laboratory Technologist Name Role Phone Iraj Longoria Primary Care Provider Sumeet Morales Unavailable [phone] Allergies No Known Allergies Reason For Referral No Information Medications Medication SIG (Take, Route, Frequency, Duration) Notes Start Date End Date Status Fernanda Fe 07/03 1-20 MG-MCG Take 1 tablet by mouth once daily; Duration: Not-Sunil ing Metoprolol Succinate ER 50 MG 1 tablet Orally Once a day Active Immunizations Vaccine Route Administration Date Status Comme nts Fluzone PF Quad (6-35 months) Unknown 04/18/2019 Admini stered Tetanus Tdap-Adacel (over 7yrs) Unknown 01/15/2010 Admi nistered Tetanus Tdap-Adacel (over 7yrs) Unknown 08/19/2022 Admi nistered xGardasil Unknown 01/15/2010 Administered Problems Problem Type SNOMED Code ICD Code Onset Dates Problem Status W/U Status Risk Notes Problem Information temporarily unavailable Tachycardia (R00.0) Active confirmed Problem Information temporarily unavailable Dysfunctional uterine bleeding (N93.8) Active confirmed Problem Information temporarily unavailable Depressive disorder (F32.9) Active confirmed Problem Information temporarily unavailable Attention deficit disorder (F90.0) Active confirmed Problem Information temporarily unavailable BMI 40.0-44.9, adult (Z68.41) Active confirmed Problem Information temporarily unavailable Tonsillith (J35.8) Active confirmed Vital Signs Heart Rate 90 /min 01/09/2025 Blood pressure diastolic 80 mm Hg 01/09/2025 Height 64.50 in 01/09/2025 Blood pressure systolic 138 mm Hg 01/09/2025 Weight 239.4 lbs 01/09/2025 BMI 40.45 kg/m2 01/09/2025 Encounters Encounter Location Date Provider Diagnosis [facility] [address] [place], [place] [id number] 04/06/2024 R Denis Von Attention deficit disorder F90.0 and Tachycardia R00.0 [facility] [address] [place], [place] [id number] 07/06/2024 R Denis Von Attention deficit disorder F90.0 and Tachycardia R00.0 [facility] [address] [place] [id number] 10/05/2024 R Denis Von Attention deficit disorder F90.0 and Tachycardia R00.0 [facility] [address] [place], [place] [id number] 01/09/2025 R Denis Von Attention deficit disorder F90.0 and Tachycardia R00.0 [facility] [address] [place], [place] [id number] 05/18/2024 R Denis Von Attention deficit disorder F90.0 [facility] [address] [place], [place] [id number] 06/27/2024 R Denis Von Attention deficit disorder F90.0 [facility] [address] [place], [place] [id number] 08/16/2024 R Denis Von Attention deficit disorder F90.0 [facility] [address] [place], [place] [id number] 09/20/2024 R Denis Von Attention deficit disorder F90.0 [facility] [address] [place] [id number] 10/23/2024 Sumeet [place] Attention deficit disorder F90.0 [facility] [address] [place], [place] [id number] 11/28/2024 R Denis Von Attention deficit disorder F90.0 [facility] [address] [place], [place] [id number] 01/05/2025 Sumeet Morales Attention deficit disorder F90.0 [...] Insured Coverage Start Date Coverage End Date [employer] [address] [place] [address] [id number] 1ESuzie Mota Self - patient is the insured Medical (General) History Medical History History ICD Code ADHD Tachycardia COVID 09/2020 Surgical History Surgery Date(Month/Year) Moisés Quinn 11/01/2019 Hospitalization History Reason Date(Month/Year) [facility] - Child 10/26/2022
== END 2025-04-06 23:59 | disposition home or self-care (01) ==
LOC: LAB 10:35
PROVIDERS: PCP Family Medicine; Visit Provider Obstetrics & Gynecology
DX: Z34.90 Encounter for supervision of normal pregnancy, unspecified, unspecified trimester (principal); N92.6 Irregular menstruation, unspecified
CPT/HCPCS: 36415; 84702

== ENCOUNTER 2025-04-09 11:48 | Outpatient (CLI) | payer BC, SELFPAY ==
--- OUTSIDE RECORDS SUMMARY | 2024-01-06 05:45 | XMS_ITS ---
Author Organization [facility] Address [address] [place] [phone] Care Team Providers Care Mortgage Loan Originator Name Role Phone Iraj Longoria Primary Care Provider [phone] Allergies No Known Allergies REASON FOR VISIT [...] Encounters Encounter Location Date Provider Diagnosis [facility] [address] [place] [address] [place] Med[place] [phone] 01/06/2024 Iraj Longoria Attention deficit disorder F90.0 [...] Notes * Suzie ELLSWORTHDOB:2000 (24 yo F)Acc No.[id number]:01/06/2024 Patient: Suzie JONES Provider: Iraj Longoria M.D. :2000 A ge:23 Y S ex:Female Date:01/06/2024 Address:[address] [place] [address], [place], [id number] Subjective: * Chief Complaints: * 1 . [...] * Images: Billing Information: * Visit Code: 77581 Office Visit, Est Pt., Level 3. * Procedure Codes: 79077 PULSE OX. * Electronic signature of Iraj Longoria MD on 04/09/2025 at 11:50 AM EDT Sign off status: Pending * Provider: Iraj Longoria M.D. Date: 0 01/06/2024 Generated for Rani french/José Miguel/Garcia on: 1 11:50 AM EDT History and Physical Notes * HPI (History of Present Illness) Category Sub-Category Detail Notes Category Not es Psychology [facility] [...]
--- OUTSIDE RECORDS SUMMARY | 2024-04-06 05:00 | XMS_ITS ---
Author Organization [facility] Address 1210 [facility] [address] [place] [phone] Care Team Providers Care Exhaust Emissions Inspector Name Role Phone Iraj Longoria Primary Care [...] Encounter Location Date Provider Diagnosis [facility] 1210 [facility] [address] [place] [phone] 04/06/2024 Iraj Longoria Attention deficit disorder F90.0 [...] Notes * Suzie ELLSWORTHDOB:2000 (24 yo F)Acc No.[id number]:04/06/2024 Progress Notes Patient: Suzie JONES Provider: Iraj Longoria M.D. :2000 A ge:23 Y S ex:Female Date:04/06/2024 Address:[address], [id number] Subjective: * Chief Complaints: * 1 . [...] * Images: Billing Information: * Visit Code: 09554 Office Visit, Est Pt., Level 3. * Procedure Codes: * Electronic signature of Iraj Longoria MD on 04/09/2025 at 11:50 AM EDT Sign off status: Pending * Provider: Iraj Longoria M.D. Date: Generated for Rani french/José Miguel/eTransmitting on: 11:50 AM EDT History and Physical Notes * Examination Category Sub-Category Detail Notes Category Not es General Examination Heart: RSR Lungs: clear to auscultatio n Extremities: no leg edema General Appearance: NAD. Affect good
--- OUTSIDE RECORDS SUMMARY | 2024-07-06 05:45 | XMS_ITS ---
Author Organization [facility] Address 1210 [facility] [address] [place] [phone] Care Team Providers Care Supervisor Filter Assembly Name Role Phone Iraj Longoria Primary Care Provider [phone] Allergies No Known Allergies REASON FOR VISIT [...] 1210 [facility] [address] [place] [phone] 07/06/2024 Iraj Longoria Attention deficit disorder F90.0 [...] Notes * Suzie ELLSWORTHDOB:2000 (24 yo F)Acc No.[id number]:07/06/2024 Progress Notes Patient: Suzie JONES Provider: Iraj Longoria M.D. :2000 A ge:23 Y S ex:Female Date:07/06/2024 Address:[address] [place] [address], [place], [id number] Subjective: * Chief Complaints: * 1 . [...] * Images: Billing Information: * Visit Code: 80870 Office Visit, Est Pt., Level 3. * Procedure Codes: * Electronic signature of Iraj Longoria MD on 04/09/2025 at 11:50 AM EDT Sign off status: Pending * Provider: Iraj Longoria M.D. Date: 0 07/06/2024 Generated for Rani french/José Miguel/Nimishaitting on: 1 11:50 AM EDT
--- OUTSIDE RECORDS SUMMARY | 2024-10-05 05:00 | XMS_ITS ---
Author Organization [facility] Address [address] [place] [phone] Care Team Providers Care Energy Conservation Engineer Name Role Phone Iraj Longoria Primary [...] Encounter Location Date Provider Diagnosis [facility] [address] [place] [phone] 10/05/2024 Iraj Longoria Attention deficit disorder F90.0 [...] Notes * [place] ELLSWORTH:2000 (24 yo F)Acc No.[id number]:10/05/2024 Progress Notes Patient: Suzie JONES Provider: Iraj Longoria M.D. :2000 A ge:23 Y S ex:Female Date:10/05/2024 Address:[address] [place] [address], [place], [id number] Subjective: * Chief Complaints: * 1 . [...] * Images: Billing Information: * Visit Code: 74913 Office Visit, Est Pt., Level 3. * Procedure Codes: 3074F SYST BP LT 130 MM HG. 3079F DIAST BP 80-89 MM HG. * Electronic signature of Iraj Longoria MD on 04/09/2025 at 11:50 AM EDT Sign off status: Pending * Provider: Iraj Longoria M.D. Date: 0 10/05/2024 Generated for Rani french/José Miguel/eTransmitting on: 1 11:50 AM EDT History and [...]
--- OUTSIDE RECORDS SUMMARY | 2025-01-09 06:30 | XMS_ITS ---
Author Organization [facility] Address 1210 [facility] [address] [place] [phone] Care Team Providers Care Inclusion Teacher Name Role Phone Iraj Longoria Primary Care Provider [phone] Allergies No Known Allergies REASON FOR VISIT [...] Encounter Location Date Provider Diagnosis [facility] 1210 [facility] [address] [place] [phone] 01/09/2025 Iraj Longoria Attention deficit disorder F90.0 [...] Notes * Suzie ELLSWORTHDOB:2000 (24 yo F)Acc No.[id number]:01/09/2025 Progress Notes Patient: Suzie JONES Provider: Iarj Longoria M.D. :2000 A ge:24 Y S ex:Female Date:01/09/2025 Address:[address], [place], [id number] Subjective: * Chief Complaints: * 1 . [...] * Images: Billing Information: * Visit Code: 41499 Office Visit, Est Pt., Level 3. * Procedure Codes: 1036F TOBACCO NON-USER. 3075F SYST BP GE 130 - 139MM HG. 3079F DIAST BP 80-89 MM HG. * Electronic signature of Iraj Longoria MD on 04/09/2025 at 11:50 AM EDT Sign off status: Pending * Provider: Iraj Longoria M.D. Date: 0 01/09/2025 Generated for Rani french/José Miguel/Nimishaitting on: 1 11:50 AM EDT History and Physical Notes * HPI (History of Present Illness) Category Sub-Category Detail Notes Category Not es Psychology She is planning to have her IUD removed and she and her are trying to get .
--- OUTSIDE RECORDS SUMMARY | 2025-04-09 11:51 | XMS_ITS | Patient Health Record ---
Author Organization [facility] Address [address] [place] [id number] Care Team Providers Care Oncology Radiation Physician Name Role Phone Iraj Longoria Primary Care Provider Sumeet Morales Unavailable [phone] Allergies No Known Allergies Reason For Referral [...] Status W/U Status Risk Notes Problem Tachycardia (3373494) Tachycardia (R00.0) Active confirmed Problem Dysfunctional uterine bleeding (50356000822411) Dysfunctional uterine bleeding (N93.8) Active confirmed Problem Depressive disorder (82070129) Depressive disorder (F32.9) Active confirmed Problem Attention deficit disorder (86708177) Attention deficit disorder (F90.0) Active confirmed Problem Body mass index 40+ - morbidly obese (431795118) BMI 40.0-44.9, adult (Z68.41) Active confirmed Problem Tonsillith (6192696) Tonsillith (J35.8) Active confirmed Vital Signs Heart Rate 90 /min 01/09/2025 Blood pressure diastolic 80 mm Hg 01/09/2025 Height 64.50 in 01/09/2025 Blood pressure systolic 138 mm Hg 01/09/2025 Weight 239.4 lbs 01/09/2025 BMI 40.45 kg/m2 01/09/2025 Encounters Encounter Location Date Provider Diagnosis [facility] [address] [place], [place] [id number] 07/06/2024 R Denis Von Attention deficit disorder F90.0 and Tachycardia R00.0 [facility] [address] [place], [place] [id number] 10/05/2024 R Denis Von Attention deficit disorder F90.0 and Tachycardia R00.0 [facility] [address] [place], [place] [id number] 01/09/2025 R Denis Von Attention deficit disorder F90.0 and Tachycardia R00.0 [facility] [address] [place] [id number] 05/18/2024 R Denis Von Attention deficit disorder F90.0 [facility] [address] [place] [id number] 06/27/2024 R Denis Von Attention deficit disorder F90.0 [facility] [address] [place] [id number] 08/16/2024 R Denis Von Attention deficit disorder F90.0 [facility] [address] [place] [id number] 09/20/2024 R Denis Von Attention deficit disorder F90.0 [facility] [address] [place] [id number] 10/23/2024 Sumeet [place] Attention deficit disorder F90.0 [facility] [address] [place] [id number] 11/28/2024 R Denis Von Attention deficit disorder F90.0 [facility] [address] [place] [id number] 01/05/2025 Sumeet [place] Attention deficit disorder F90.0 Assessments Encounter Date Diagnosis (ICD Code) Assessment Notes Treatment Notes Treatment Clinical Notes Section Notes 05/18/2024 Attention deficit disorder (ICD-10 - F90.0) 06/27/2024 Attention deficit disorder (ICD-10 - F90.0) 08/16/2024 Attention deficit disorder (ICD-10 - F90.0) [...] and throughout the duration of her . 07/06/2024 Tachycardia (ICD-10 - R00.0) 07/06/2024 Attention deficit disorder (ICD-10 - F90.0) Capsule formulation will be started when due for next refill. Plan Of Treatment No Information Insurance Providers Payer Name Payer Address Payer Phone Subscriber Number Group Number Insured Name Patient Relationship to Insured Coverage Start Date Coverage End Date [employer]OLAS [place] [employer] [facility] [address] [place] [address] [id number] 1ESuzie Mota Self - patient is the insured Medical (General) History Medical History History ICD Code ADHD Tachycardia COVID 09/2020 Surgical History Surgery Date(Month/Year) Moisés Quinn 11/01/2019 Hospitalization History Reason Date(Month/Year) [facility] - Child 10/26/2022
== END 2025-04-09 23:59 | disposition home or self-care (01) ==
LOC: LAB 11:48
PROVIDERS: PCP Family Medicine; Visit Provider Obstetrics & Gynecology
DX: Z34.90 Encounter for supervision of normal pregnancy, unspecified, unspecified trimester (principal); Z3A.00 Weeks of gestation of pregnancy not specified
CPT/HCPCS: 36415; 84702

== ENCOUNTER 2025-04-10 08:11 | Outpatient (CLI) | payer BC, SELFPAY ==
--- OUTSIDE RECORDS SUMMARY | 2024-01-06 05:45 | XMS_ITS ---
Author Organization [facility] Address [address] [place] [phone] Care Team Providers Care Tearer Press Clipping Name Role Phone Iraj Longoria Primary Care [...] Encounters Encounter Location Date Provider Diagnosis [facility] [address] [place] [address] [place] [phone] 01/06/2024 Iraj Longoria Attention deficit disorder F90.0 [...] Notes * Suzie ELLSWORTHDOB:2000 (24 yo F)Acc No.[id number]:01/06/2024 Patient: Suzie JONES Provider: Iraj Longoria M.D. :2000 A ge:23 Y S ex:Female Date:01/06/2024 Address:[address] [place] [address], [place], [id number] Subjective: * Chief Complaints: * 1 . [...] * Images: Billing Information: * Visit Code: 73863 Office Visit, Est Pt., Level 3. * Procedure Codes: 05598 PULSE OX. * Electronic signature of Iraj Longoria MD on 04/10/2025 at 08:14 AM EDT Sign off status: Pending * Provider: Iraj Longoria M.D. Date: 0 01/06/2024 Generated for Rani french/José Miguel/Garcia on: 1 08:14 AM EDT History and Physical Notes * HPI (History of Present Illness) Category Sub-Category Detail Notes Category Not es Psychology [facility] Pt [...]
--- OUTSIDE RECORDS SUMMARY | 2024-04-06 05:00 | XMS_ITS ---
Author Organization [facility] Address 1210 [facility] [address] [place] [phone] Care Team Providers Care Mattress Renovator Name Role Phone Iraj Longoria Primary Care [...] Encounter Location Date Provider Diagnosis [facility] 1210 [facility] [address] [place] [phone] 04/06/2024 Iraj Longoria Attention deficit disorder F90.0 [...] Notes * Suzie ELLSWORTHDOB:2000 (24 yo F)Acc No.[id number]:04/06/2024 Progress Notes Patient: Suzie JONES Provider: Iraj Longoria M.D. :2000 A ge:23 Y S ex:Female Date:04/06/2024 Address:[address], [id number] Subjective: * Chief Complaints: * 1 . [...] * Images: Billing Information: * Visit Code: 10174 Office Visit, Est Pt., Level 3. * Procedure Codes: * Electronic signature of Iraj Longoria MD on 04/10/2025 at 08:15 AM EDT Sign off status: Pending * Provider: Iraj Longoria M.D. Date: Generated for Rani french/José Miguel/eTransmitting on: 08:15 AM EDT History and Physical Notes * Examination Category Sub-Category Detail Notes Category Not es General Examination Heart: RSR Lungs: clear to auscultatio n Extremities: no leg edema General Appearance: NAD. Affect good
--- OUTSIDE RECORDS SUMMARY | 2024-07-06 05:45 | XMS_ITS ---
Author Organization [facility] Address 1210 [facility] [address] [place] [phone] Care Team Providers Care Senior Hardware Design Engineer Name Role Phone Iraj Longoria Primary Care Provider [phone] Allergies No Known Allergies REASON FOR VISIT [...] Encounter Location Date Provider Diagnosis [facility] 1210 [facility] [address] [place] [phone] 07/06/2024 Iraj Longoria Attention deficit disorder F90.0 [...] Notes * Suzie ELLSWORTHDOB:2000 (24 yo F)Acc No.[id number]:07/06/2024 Progress Notes Patient: Suzie JONES Provider: Iraj Longoria M.D. :2000 A ge:23 Y S ex:Female Date:07/06/2024 Address:[address] [place] [address], [place], [id number] Subjective: * Chief Complaints: * 1 . [...] * Images: Billing Information: * Visit Code: 22527 Office Visit, Est Pt., Level 3. * Procedure Codes: * Electronic signature of Iarj Longoria MD on 04/10/2025 at 08:13 AM EDT Sign off status: Pending * Provider: Iraj Longoria M.D. Date: 0 07/06/2024 Generated for Rani french/José Miguel/Garcia on: 08:13 AM EDT
--- OUTSIDE RECORDS SUMMARY | 2024-10-05 05:00 | XMS_ITS ---
Author Organization [facility] Address [address] [place] [phone] Care Team Providers Care Wool Broker Name Role Phone Iraj Longoria Primary Care [...] Location Date Provider Diagnosis [facility] [address] [place] [phone] 10/05/2024 Iraj Longoria Attention deficit disorder F90.0 [...] Notes * [place] ELLSWORTH:2000 (24 yo F)Acc No.[id number]:10/05/2024 Progress Notes Patient: Suzie JONES Provider: Iraj Longoria M.D. :2000 A ge:23 Y S ex:Female Date:10/05/2024 Address:[address] [place] [address], [place], [id number] Subjective: * Chief Complaints: * 1 . [...] * Images: Billing Information: * Visit Code: 21947 Office Visit, Est Pt., Level 3. * Procedure Codes: 3074F SYST BP LT 130 MM HG. 3079F DIAST BP 80-89 MM HG. * Electronic signature of Iraj Longoria MD on 04/10/2025 at 08:14 AM EDT Sign off status: Pending * Provider: Iraj Longoria M.D. Date: 0 10/05/2024 Generated for Rani french/José Miguel/eTransmitting on: 1 08:14 AM EDT History and [...]
--- OUTSIDE RECORDS SUMMARY | 2025-01-09 06:30 | XMS_ITS ---
Author Organization [facility] Address 1210 [facility] [address] [place] [phone] Care Team Providers Care Reel Cutter Name Role Phone Iraj Longoria Primary Care [...] Encounter Location Date Provider Diagnosis [facility] 1210 [facility] [address] [place] [phone] 01/09/2025 Iraj Longoria Attention deficit disorder F90.0 [...] Notes * Suzie ELLSWORTHDOB:2000 (24 yo F)Acc No.[id number]:01/09/2025 Progress Notes Patient: Suzie JONES Provider: Iraj Longoria M.D. :2000 A ge:24 Y S ex:Female Date:01/09/2025 Address:[address], [place], [id number] Subjective: * Chief Complaints: * 1 . [...] * Images: Billing Information: * Visit Code: 55468 Office Visit, Est Pt., Level 3. * Procedure Codes: 1036F TOBACCO NON-USER. 3075F SYST BP GE 130 - 139MM HG. 3079F DIAST BP 80-89 MM HG. * Electronic signature of Iraj Longoria MD on 04/10/2025 at 08:15 AM EDT Sign off status: Pending * Provider: Iraj Longoria M.D. Date: 0 01/09/2025 Generated for Rani french/José Miguel/Nimishaitting on: 08:15 AM EDT History and Physical Notes * HPI (History of Present Illness) Category Sub-Category Detail Notes Category Not es Psychology She is planning to have her IUD removed and she and her are trying to get .
--- OUTSIDE RECORDS SUMMARY | 2025-04-10 08:16 | XMS_ITS | Patient Health Record ---
Author Organization [facility] Address [address] [place] [id number] Care Team Providers Care Cloth Doffer Name Role Phone Iraj Longoria Primary Care Provider Sumeet Morales Unavailable [phone] Allergies No Known Allergies Reason For Referral [...] Status W/U Status Risk Notes Problem Tachycardia (0482097) Tachycardia (R00.0) Active confirmed Problem Dysfunctional uterine bleeding (92221501876848) Dysfunctional uterine bleeding (N93.8) Active confirmed Problem Depressive disorder (29173358) Depressive disorder (F32.9) Active confirmed Problem Attention deficit disorder (04432603) Attention deficit disorder (F90.0) Active confirmed Problem Body mass index 40+ - morbidly obese (029544010) BMI 40.0-44.9, adult (Z68.41) Active confirmed Problem Tonsillith (8426923) Tonsillith (J35.8) Active confirmed Vital Signs Heart Rate 90 /min 01/09/2025 Blood pressure diastolic 80 mm Hg 01/09/2025 Height 64.50 in 01/09/2025 Blood pressure systolic 138 mm Hg 01/09/2025 Weight 239.4 lbs 01/09/2025 BMI 40.45 kg/m2 01/09/2025 Encounters Encounter Location Date Provider Diagnosis [facility] [address] [place], [place] [id number] 07/06/2024 R Denis Von Attention deficit disorder F90.0 and Tachycardia R00.0 [facility] [address] [place] [id number] 10/05/2024 R Denis Von Attention deficit disorder F90.0 and Tachycardia R00.0 [facility] [address] [place] [id number] 01/09/2025 R Denis Von Attention deficit disorder F90.0 and Tachycardia R00.0 [facility] [address] [place] [id number] 05/18/2024 R Denis Von Attention deficit disorder F90.0 [facility] [address] [place] [id number] 06/27/2024 R Denis Von Attention deficit disorder F90.0 [facility] [address] [place] [id number] 08/16/2024 R Denis Von Attention deficit disorder F90.0 [facility] [address] [place] [id number] 09/20/2024 R Denis Von Attention deficit disorder F90.0 [facility] [address] [place] [id number] 10/23/2024 Sumeet [place] Attention deficit disorder F90.0 [facility] [address] [place] [id number] 11/28/2024 R Denis Von Attention deficit disorder F90.0 [facility] [address] [place] [id number] 01/05/2025 Sumeet [place] Attention deficit disorder F90.0 Assessments Encounter Date [...] Coverage Start Date Coverage End Date [facility] [address] [place] [address] [id number] 1ESuzie Mota Self - patient is the insured Medical (General) History Medical History History ICD Code ADHD Tachycardia COVID 09/2020 Surgical History Surgery Date(Month/Year) Moisés Quinn 11/01/2019 Hospitalization History Reason Date(Month/Year) [facility] - Child 10/26/2022
--- NOTE | 2025-04-10 08:30 | US_ITS ---
PROCEDURE: US OB TRANSVAGINAL CLINICAL INDICATION: Dates/Viability COMPARISON: No exams were available for comparison FINDINGS: Transvaginal sonographic images of the pelvis were obtained. From her last menstrual period she is 8weeks 5days. An intrauterine gestational sac is present but a pole is not yet seen. This correlates to a gestational age of 5weeks 6days. heart tones are not yet seen. Yolk sac is not seen today. The endometrium appears in homogeneous. The right ovary is seen and appears normal. There is a corpus luteum in the right ovary. The left ovary is seen and appears normal. There is no fluid in the cul-de-sac. IMPRESSION: 1. A gestational sac is seen within the uterine cavity. 2. An embryo and heart rate activity are not seen today. 3. Both ovaries are seen and appear normal. There appears to be a corpus luteum in the right ovary. 4. No fluid in the cul-de-sac. 5. Suggest repeat ultrasound in 1 week along with quantitative beta hCGs. Dictated by: Nemesio Calvillo MD 04/10/2025 10:44 Nemesio Calvillo MD in OV 04/10/2025 10:44
== END 2025-04-10 23:59 | disposition home or self-care (01) ==
LOC: RAD 08:11
PROVIDERS: PCP Family Medicine; Visit Provider Obstetrics & Gynecology
DX: O34.81 Maternal care for other abnormalities of pelvic organs, first trimester (principal); O26.851 Spotting complicating pregnancy, first trimester; N83.11 Corpus luteum cyst of right ovary; Z3A.08 8 weeks gestation of pregnancy
CPT/HCPCS: 76817

== ENCOUNTER 2025-04-11 10:39 | Outpatient (CLI) | payer BC, SELFPAY ==
--- OUTSIDE RECORDS SUMMARY | 2024-01-06 05:45 | XMS_ITS ---
Author Organization [facility] Address [address] [place] [phone] Care Team Providers Care Nail Mill Worker Name Role Phone Iraj Longoria Primary Care [...] Encounters Encounter Location Date Provider Diagnosis [facility] [address] [place] [address] [place] [phone] 01/06/2024 Iraj Longoria Attention deficit disorder F90.0 [...] Notes * Suzie ELLSWORTHDOB:2000 (24 yo F)Acc No.[id number]:01/06/2024 Patient: Suzie JONES Provider: Iraj Longoria M.D. :2000 A ge:23 Y S ex:Female Date:01/06/2024 Address:[address] [place] [address], [place], [id number] Subjective: * Chief Complaints: * 1 . [...] * Images: Billing Information: * Visit Code: 22506 Office Visit, Est Pt., Level 3. * Procedure Codes: 99369 PULSE OX. * Electronic signature of Iraj Longoria MD on 04/11/2025 at 10:46 AM EDT Sign off status: Pending * Provider: Iraj Longoria M.D. Date: 0 01/06/2024 Generated for Rani french/José Miguel/Garcia on: 1 10:46 AM EDT History and Physical Notes * HPI (History of Present Illness) Category Sub-Category Detail Notes Category Not es Psychology [facility] [...]
--- OUTSIDE RECORDS SUMMARY | 2024-04-06 05:00 | XMS_ITS ---
Author Organization [facility] Address 1210 [facility] [address] [place] [phone] Care Team Providers Care Bursar Name Role Phone Iraj Longoria Primary Care [...] Encounter Location Date Provider Diagnosis [facility] 1210 [facility] [address] [place] [phone] 04/06/2024 Iraj Longoria Attention deficit disorder F90.0 [...] Notes * Suzie ELLSWORTHDOB:2000 (24 yo F)Acc No.[id number]:04/06/2024 Progress Notes Patient: Suzie JONES Provider: Iraj Longoria M.D. :2000 A ge:23 Y S ex:Female Date:04/06/2024 Address:[address], [id number] Subjective: * Chief Complaints: * 1 . [...] * Surgical History: Fortunato Santiago - Dr. Qiunn 11/01/2019. * Hospitalization/Major Diagno stic Procedure: H [...] * Images: Billing Information: * Visit Code: 43182 Office Visit, Est Pt., Level 3. * Procedure Codes: * Electronic signature of Iraj Longoria MD on 04/11/2025 at 10:46 AM EDT Sign off status: Pending * Provider: Iraj Longoria M.D. Date: Generated for Rani french/José Miguel/eTransmitting on: 10:46 AM EDT History and Physical Notes * Examination Category Sub-Category Detail Notes Category Not es General Examination Heart: RSR Lungs: clear to auscultatio n Extremities: no leg edema General Appearance: NAD. Affect good
--- OUTSIDE RECORDS SUMMARY | 2024-07-06 05:45 | XMS_ITS ---
Author Organization [facility] Address 1210 [facility] [address] [place] [phone] Care Team Providers Care Insurance Special Agent Name Role Phone Iraj Longoria Primary Care [...] Encounter Location Date Provider Diagnosis [facility] 1210 [facility] [address] [place] [phone] 07/06/2024 Iraj Longoria Attention deficit disorder F90.0 [...] Notes * Suzie ELLSWORTHDOB:2000 (24 yo F)Acc No.[id number]:07/06/2024 Progress Notes Patient: Suzie JONES Provider: Iraj Longoria M.D. :2000 A ge:23 Y S ex:Female Date:07/06/2024 Address:[address] [place] [address], [place], [id number] Subjective: * Chief Complaints: * 1 . [...] * Images: Billing Information: * Visit Code: 17295 Office Visit, Est Pt., Level 3. * Procedure Codes: * Electronic signature of Iraj Longoria MD on 04/11/2025 at 10:46 AM EDT Sign off status: Pending * Provider: Iraj Longoria M.D. Date: 0 07/06/2024 Generated for Rani french/José Miguel/Nimishaitting on: 10:46 AM EDT
--- OUTSIDE RECORDS SUMMARY | 2024-10-05 05:00 | XMS_ITS ---
Author Organization [facility] Address [address] [place] [phone] Care Team Providers Care Associate Software Developer Name Role Phone Iraj Longoria Primary Care Provider [phone] Allergies No Known Allergies REASON FOR VISIT [...] Encounter Location Date Provider Diagnosis [facility] [address] [place] [id number] 10/05/2024 Iraj Longoria Attention deficit disorder F90.0 [...] Notes * [place]yenne ELLSWORTH:2000 (24 yo F)Acc No.[id number]:10/05/2024 Progress Notes Patient: Suzie JONES Provider: Iraj Longoria M.D. :2000 A ge:23 Y S ex:Female Date:10/05/2024 Address:[address] [place] [address], [place], [id number] Subjective: * Chief Complaints: * 1 . [...] * Images: Billing Information: * Visit Code: 34925 Office Visit, Est Pt., Level 3. * Procedure Codes: 3074F SYST BP LT 130 MM HG. 3079F DIAST BP 80-89 MM HG. * Electronic signature of Iraj Longoria MD on 04/11/2025 at 10:46 AM EDT Sign off status: Pending * Provider: Iraj Longoria M.D. Date: 0 10/05/2024 Generated for Rani french/José Miguel/eTransmitting on: 1 10:46 AM EDT History and [...]
--- OUTSIDE RECORDS SUMMARY | 2025-01-09 06:30 | XMS_ITS ---
Author Organization [facility] Address 1210 [facility] [address] [place] [phone] Care Team Providers Care Rest Room Matron Name Role Phone Iraj Longoria Primary Care [...] Encounter Location Date Provider Diagnosis [facility] 1210 [facility] [address] [place] [phone] 01/09/2025 Iraj Longoria Attention deficit disorder F90.0 [...] Notes * Suzie ELLSWORTHDOB:2000 (24 yo F)Acc No.[id number]:01/09/2025 Progress Notes Patient: Suzie JONES Provider: Iraj Longoria M.D. :2000 A ge:24 Y S ex:Female Date:01/09/2025 Address:[address], [place], [id number] Subjective: * Chief Complaints: * 1 . [...] * Images: Billing Information: * Visit Code: 81703 Office Visit, Est Pt., Level 3. * Procedure Codes: 1036F TOBACCO NON-USER. 3075F SYST BP GE 130 - 139MM HG. 3079F DIAST BP 80-89 MM HG. * Electronic signature of Iraj Longoria MD on 04/11/2025 at 10:47 AM EDT Sign off status: Pending * Provider: Iraj Longoria M.D. Date: 0 01/09/2025 Generated for Rani french/José Miguel/Nimishaitting on: 10:47 AM EDT History and Physical Notes * HPI (History of Present Illness) Category Sub-Category Detail Notes Category Not es Psychology She is planning to have her IUD removed and she and her are trying to get .
--- OUTSIDE RECORDS SUMMARY | 2025-04-11 10:47 | XMS_ITS | Patient Health Record ---
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 Name Role Phone Iraj Longoria Primary Care Provider Sumeet Morales Unavailable [phone] Allergies No Known Allergies Reason For Referral [...] Status W/U Status Risk Notes Problem Tachycardia (3530523) Tachycardia (R00.0) Active confirmed Problem Dysfunctional uterine bleeding (40390601463662) Dysfunctional uterine bleeding (N93.8) Active confirmed Problem Depressive disorder (46284994) Depressive disorder (F32.9) Active confirmed Problem Attention deficit disorder (21084104) Attention deficit disorder (F90.0) Active confirmed Problem Body mass index 40+ - morbidly obese (998018911) BMI 40.0-44.9, adult (Z68.41) Active confirmed Problem Tonsillith (1741479) Tonsillith (J35.8) Active confirmed Vital Signs Heart Rate 90 /min 01/09/2025 Blood pressure diastolic 80 mm Hg 01/09/2025 Height 64.50 in 01/09/2025 Blood pressure systolic 138 mm Hg 01/09/2025 Weight 239.4 lbs 01/09/2025 BMI 40.45 kg/m2 01/09/2025 Encounters Encounter Location Date Provider Diagnosis [facility] [address] [place], [place] [id number] 07/06/2024 R Denis Von Attention deficit disorder F90.0 and Tachycardia R00.0 [facility] [address] [place], [place] [id number] 10/05/2024 R Denis Von Attention deficit disorder F90.0 and Tachycardia R00.0 [facility] [address] [place] [id number] 01/09/2025 R Denis Von Attention deficit disorder F90.0 and Tachycardia R00.0 [facility] [address] [place] [id number] 05/18/2024 R Denis Von Attention deficit disorder F90.0 [facility] [address] [place] [id number] 06/27/2024 R Denis Von Attention deficit disorder F90.0 [facility] [address] [place] [id number] 08/16/2024 R Denis Von Attention deficit disorder F90.0 [facility] [address] [place] [id number] 09/20/2024 R Denis Von Attention deficit disorder F90.0 [facility] [address] [place] [id number] 10/23/2024 Sumeet [place] Attention deficit disorder F90.0 [facility] [address] [place] [id number] 11/28/2024 R Denis Von Attention deficit disorder F90.0 [facility] [address] [place] [id number] 01/05/2025 Sumeet [place] Attention deficit disorder F90.0 Assessments Encounter Date [...] Coverage Start Date Coverage End Date [facility] [place] [facility] [address] [place] [address] [id number] 1ESuzie Mota Self - patient is the insured Medical (General) History Medical History History ICD Code ADHD Tachycardia COVID 09/2020 Surgical History Surgery Date(Month/Year) Moisés Quinn 11/01/2019 Hospitalization History Reason Date(Month/Year) [facility] - Child 10/26/2022
== END 2025-04-11 23:59 | disposition home or self-care (01) ==
LOC: LAB 10:39
PROVIDERS: PCP Family Medicine; Visit Provider Obstetrics & Gynecology
DX: O46.90 Antepartum hemorrhage, unspecified, unspecified trimester (principal); Z3A.00 Weeks of gestation of pregnancy not specified
CPT/HCPCS: 36415; 84702

== ENCOUNTER 2025-04-18 11:52 | Outpatient (CLI) | payer BC, SELFPAY ==
--- OUTSIDE RECORDS SUMMARY | 2024-01-06 04:45 | XMS_ITS ---
Author Organization [facility] Address [address] [place] [id number] Care Team Providers Care Human Services Instructor Name Role Phone Iraj Longoria Primary Care Provider [phone] Allergies No Known Allergies REASON FOR VISIT 3 month f/u Medications Medication SIG (Take, Route, Frequency, Duration) Notes Start Date End Date Status Metoprolol Succinate ER 50 MG 1 tablet Orally Once a day Active Adderall XR 20 MG 1 capsule in the mor chad Orally Once a day Active Fernanda Fe 07/03 1-20 MG-MCG Take 1 tablet by mouth once daily; Duration: 28 Not-Sunil ing Vital Signs Blood pressure systolic 118 mm Hg 01/06/20 24 Blood pressure diastolic 74 mm Hg 024 Heart Rate 100 /min 01/06/2024 Height 64.50 in 01/06/2024 Weight 243.4 lbs 01/06/2024 BMI 41.13 kg/m2 01/06/2024 Encounters Encounter Location Date Provider Diagnosis [facility] [address] [place] [address] [place] [facility] [id number] 01/06/2024 Iraj Longoria Attention deficit disorder F90.0 and Tachycardia R00.0 Assessments Encounter Date Diagnosis (ICD Code) Assessment Notes Treatment Notes Treatment Clinical Notes Section Notes 01/06/2024 Attention deficit disorder (ICD-10 - F90.0) 01/06/2024 Tachycardia (ICD-10 - R00.0) Plan Of Treatment Medication Medication Name Sig Start Date Stop Date Notes Metoprolol Succinate ER 50 MG 1 tablet Orally Once a day Adderall XR 20 MG 1 capsule in the mor chad Orally Once a day Next Appt Details Follow Up: 3 Months, Reason: Progress Notes * Suzie ELLSWORTHDOB:2000 (24 yo F)Acc No.[id number]:01/06/2024 Patient: Suzie JONES Provider: Iraj Longoria M.D. :2000 A ge:23 Y S ex:Female Date:01/06/2024 Address:[address] [place] [address], [place], [id number] Subjective: * Chief Complaints: * 1 . 3 month f/u. * HPI: P sychology: 23 year old female presents with c/o ADD/ADHD P t presents today for a 3 month check up. Pt sts that she does have Adderall right now but sts that she was without it for over a week due to the pharmacy being out of stock. Pt sts that she does need a refill of Metoprolol. Pt sts that she is doing well and has no new concerns or complaints at this time. * ROS: D ERMATOLOGY: no R alessio. n o H daniela. G ASTROENTEROLOGY: no N ausea. n o V omiting. U ROLOGY: no D ifficulty urinating. n o B lood in urine. * Medical History: A DHD, Tachycardia, COVID - 09/2020. * Surgical History: Fortunato Santiago - Dr. Quinn 11/01/2019. * Hospitalization/Major Diagno stic Procedure: H [facility] - Child 10/26/2022. * Family History: F ather: alive 51 yrs, Hypertension. M other: alive 57 yrs. 1 sister(s) . . * Social History: C URRENT TOBACCO USE S moking Status: Patient does NOT smoke. C affeine: yes, frequency:. Home smoke detector use: yes. * Medications: T aking Metoprolol Succinate ER 50 MG Tablet Extended Release 24 Hour 1 tablet Orally Once a day , Taking Adderall XR 20 MG Capsule Extended Release 24 Hour 1 capsule in the morning Orally Once a day , Not-Taking Fernanda Fe 07/03 1-20 MG-MCG Tablet Take 1 tablet by mouth once daily , Medication List reviewed and reconciled with the patient * Allergies: N .K.D.A. Objective: * Vitals: W t:243.4, Temp:99.1, BP:118/74, HR:100, O2 Sat:100% on RA, Nurse:ANSELMO, Ht: 64.50, BMI:41.13. * Examination: G eneral Examination: General Appearance: N AD. Affect good. H eart: R SR. L ungs: c lear to auscultation. E xtremities: n o leg edema. ? Assessment: * Assessment: 1. A ttention deficit disorder - F90.0 (Primary) 2 . T achycardia - R00.0? Plan: * Treatment: 2. T achycardia Refill Metoprolol Succinate ER Tablet Extended Release 24 Hour, 50 MG, 1 tablet, Orally, Once a day, 90, Refills 1. * Procedure Codes: 9 4760 PULSE OX * Follow Up: 3 Months * Images: Billing Information: * Visit Code: 18669 Office Visit, Est Pt., Level 3. * Procedure Codes: 84695 PULSE OX. * Electronic signature of Iraj Longoria MD on 04/18/2025 at 12:15 PM EST Sign off status: Pending * Provider: Iraj Longoria M.D. Date: 0 01/06/2024 Generated for Rani french/José Miguel/Garcia on: 06/18/2024 12:15 PM EST History and Physical Notes * HPI (History of Present Illness) Category Sub-Category Detail Notes Category Not es Psychology ADD/ADHD Pt presents to y for a 3 month check up. Pt sts that she does have Adderall right now but sts that she was without it for over a week due to the pharmacy being out of stock. Pt sts that she does need a refill of Metoprolol. Pt sts that she is doing well and has no new concerns or complaints at this time Examination Category Sub-Category Detail Notes Category Not es General Examination Heart: RSR Lungs: clear to auscultatio n Extremities: no leg edema General Appearance: NAD. Affect good
--- OUTSIDE RECORDS SUMMARY | 2024-04-06 04:00 | XMS_ITS ---
Author Organization [facility] Address 1210 [facility] [address] [place] [phone] Care Team Providers Care Foreign Language Interpreter Name Role Phone Iraj Longoria Primary Care Provider [phone] Allergies No Known Allergies REASON FOR VISIT [...] Encounter Location Date Provider Diagnosis [facility] 1210 [facility] [address] [place] [phone] 04/06/2024 Iraj Longoria Attention deficit disorder F90.0 [...] Notes * Suzie ELLSWORTHDOB:2000 (24 yo F)Acc No.[id number]:04/06/2024 Progress Notes Patient: Suzie JONES Provider: Iraj Longoria M.D. :2000 A ge:23 Y S ex:Female Date:04/06/2024 Address:[address], [id number] Subjective: * Chief Complaints: * 1 . [...] * Images: Billing Information: * Visit Code: 39932 Office Visit, Est Pt., Level 3. * Procedure Codes: * Electronic signature of Iraj Longoria MD on 04/18/2025 at 12:15 PM EST Sign off status: Pending * Provider: Irja Longoria M.D. Date: Generated for Rani french/José Miguel/eTransmitting on: 06/18/2024 12:15 PM EST History and Physical Notes * Examination Category Sub-Category Detail Notes Category Not es General Examination Heart: RSR Lungs: clear to auscultatio n Extremities: no leg edema General Appearance: NAD. Affect good
--- OUTSIDE RECORDS SUMMARY | 2024-07-06 04:45 | XMS_ITS ---
Author Organization [facility] Address 1210 [facility] [address] [place] [phone] Care Team Providers Care Hard Metals Engraver Hand Name Role Phone Iraj Longoria Primary Care Provider Allergies No Known Allergies REASON FOR VISIT 3 Month Follow Up Medications Medication SIG (Take, Route, Frequency, Duration) Notes Start Date End Date Status Metoprolol Succinate ER 50 MG 1 tablet Orally Once a day Active Vyvanse 20 MG 1 capsule in the mor chad Orally Once a day 07/07/2024 Active Fernanda Fe 07/03 1-20 MG-MCG Take 1 tablet by mouth once daily; Duration: 28 Not-Sunil ing Vital Signs Blood pressure systolic 126 mm Hg 07/06/19 25 Blood pressure diastolic 86 mm Hg 025 Heart Rate 82 /min 07/06/2024 Height 64.50 in 07/06/2024 Weight 252 lbs 07/06/2024 BMI 42.58 kg/m2 07/06/2024 Encounters Encounter Location Date Provider Diagnosis [facility] 1210 [facility] [address] [place] [phone] 07/06/2024 Iraj Longoria Attention deficit disorder F90.0 and Tachycardia R00.0 Assessments Encounter Date Diagnosis (ICD Code) Assessment Notes Treatment Notes Treatment Clinical Notes Section Notes 07/06/2024 Attention deficit disorder (ICD-10 - F90.0) Capsule formulation will be started when due for next refill. 07/06/2024 Tachycardia (ICD-10 - R00.0) Plan Of Treatment Medication Medication Name Sig Start Date Stop Date Notes Metoprolol Succinate ER 50 MG 1 tablet Orally Once a day Vyvanse 20 MG 1 tablet in the morn ing Orally Once a day Vyvanse 20 MG 1 capsule in the mor chad Orally Once a day 07/07/2024 Treatment Notes Assessment Notes Attention deficit disorder Capsule formu lation will be started when due for next refill. Next Appt Details Follow Up: 3 Months, Reason: Progress Notes * Suzie ELLSWORTHDOB:2000 (24 yo F)Acc No.[id number]:07/06/2024 Progress Notes Patient: Suzie JONES Provider: Iraj Longoria M.D. :2000 A ge:23 Y S ex:Female Date:07/06/2024 Address:[address] [place] [address], [place], [id number] Subjective: * Chief Complaints: * 1 . 3 Month Follow Up. * HPI: P sychology: Pt presents today for a 3 month follow up. Pt is doing well and has no new concerns or complaints at this time. * ROS: D ERMATOLOGY: no R alessio. n o H daniela. G ASTROENTEROLOGY: no N ausea. n o V omiting. n o D iarrhea.? U ROLOGY: no D ifficulty urinating. n o B lood in urine. * Medical History: A DHD, Tachycardia, COVID - 09/2020. * Surgical History: Fortunato Quinn 11/01/2019. * Hospitalization/Major Diagno stic Procedure: H [facility] - Child 10/26/2022. * Family History: F ather: alive 52 yrs, Hypertension. M other: alive 58 yrs. 1 sister(s) . . * Social History: C URRENT TOBACCO USE S moking Status: Patient does NOT smoke. C affeine: yes, frequency:. Home smoke detector use: yes. * Medications: T aking Metoprolol Succinate ER 50 MG Tablet Extended Release 24 Hour 1 tablet Orally Once a day , Taking Vyvanse 20 MG Capsule 1 capsule in the morning Orally Once a day , Not-Taking Fernanda Fe 07/03 1-20 MG-MCG Tablet Take 1 tablet by mouth once daily , Medication List reviewed and reconciled with the patient * Allergies: N .K.D.A. Objective: * Vitals: W t:252, Temp:99.2, BP:126/86, HR:82, Nurse:ANSELMO, Ht: 64.50, BMI:42.58. Assessment: * Assessment: 1. A ttention deficit disorder - F90.0 (Primary) 2 . T achycardia - R00.0? Plan: * Treatment: 2. T achycardia Refill Metoprolol Succinate ER Tablet Extended Release 24 Hour, 50 MG, 1 tablet, Orally, Once a day. * Follow Up: 3 Months * Images: Billing Information: * Visit Code: 97899 Office Visit, Est Pt., Level 3. * Procedure Codes: * Electronic signature of Iraj Longoria MD on 04/18/2025 at 12:15 PM EST Sign off status: Pending * Provider: Iraj Longoria M.D. Date: 0 07/06/2024 Generated for Rani french/José Miguel/Nimishaitting on: 06/18/2024 12:15 PM EST
--- OUTSIDE RECORDS SUMMARY | 2024-10-05 04:00 | XMS_ITS ---
Author Organization [facility] Address [address] [place] [phone] Care Team Providers Care Field Engineer Name Role Phone Iraj Longoria Primary Care Provider [phone] Allergies No Known Allergies REASON FOR VISIT 3 month check Medications Medication SIG (Take, Route, Frequency, Duration) Notes Start Date End Date Status Vyvanse 20 MG 1 capsule in the mor chad Orally Once a day Active Metoprolol Succinate ER 50 MG 1 tablet Orally Once a day Active Fernanda Fe 07/03 1-20 MG-MCG Take 1 tablet by mouth once daily; Duration: 28 Not-Sunil ing Vital Signs Blood pressure systolic 120 mm Hg 10/06/19 25 Blood pressure diastolic 80 mm Hg 025 Heart Rate 89 /min 10/05/2024 Height 64.50 in 10/05/2024 Weight 246 lbs 10/05/2024 BMI 41.57 kg/m2 10/05/2024 Encounters Encounter Location Date Provider Diagnosis [facility] [address] [place] [phone] 10/05/2024 Iraj Longoria Attention deficit disorder F90.0 and Tachycardia R00.0 Assessments Encounter Date Diagnosis (ICD Code) Assessment Notes Treatment Notes Treatment Clinical Notes Section Notes 10/05/2024 Attention deficit disorder (ICD-10 - F90.0) 10/05/2024 Tachycardia (ICD-10 - R00.0) Plan Of Treatment Medication Medication Name Sig Start Date Stop Date Notes Vyvanse 20 MG 1 capsule in the mor chad Orally Once a day Metoprolol Succinate ER 50 MG 1 tablet Orally Once a day Next Appt Details Follow Up: 3 Months, Reason: Progress Notes * Cheyenne ELLSWORTH:2000 (24 yo F)Acc No.[id number]:10/05/2024 Progress Notes Patient: Suzie JONES Provider: Iraj Longoria M.D. :2000 A ge:23 Y S ex:Female Date:10/05/2024 Address:[address] [place] [address], [place], [id number] Subjective: * Chief Complaints: * 1 . 3 month check. * HPI: H PI: 23 year old female presents with c/o Patient is here today for?Pt is here today for a 3 month check up. Pt sts she is doing well and has no concerns at this time. C onstitutional: She has started an intermittent fasting diet. * ROS: D ERMATOLOGY: no R alessio. n o H daniela. G ASTROENTEROLOGY: no N ausea. n o V omiting. n o D iarrhea.? U ROLOGY: no D ifficulty urinating. n o B lood in urine. * Medical History: A DHD, Tachycardia, COVID 19- 09/2020. * Surgical History: Fortunato Santiago - [...] Allergies: N .K.D.A. Objective: * Vitals: W t: 246, Temp: 98.6, BP: 120/80, HR: 89, Nurse: ernestina, Ht: 64.50, BMI:41.57. * Examination: G eneral Examination: General Appearance: N AD. Affect good. Weight loss noted. H eart: R SR. L ungs: c lear to auscultation. E xtremities: n o leg edema. Assessment: * Assessment: 1. A ttention deficit disorder - F90.0 (Primary) 2 . T achycardia - R00.0? Plan: * Treatment: 2. T achycardia Refill Metoprolol Succinate ER Tablet Extended Release 24 Hour, 50 MG, 1 tablet, Orally, Once a day, 90. * Procedure Codes: 3 074F SYST BP LT 130 MM HG, 3079F DIAST BP 80-89 MM HG * Follow Up: 3 Months * Images: Billing Information: * Visit Code: 78298 Office Visit, Est Pt., Level 3. * Procedure Codes: 3074F SYST BP LT 130 MM HG. 3079F DIAST BP 80-89 MM HG. * Electronic signature of Iraj Longoria MD on 04/18/2025 at 12:15 PM EST Sign off status: Pending * Provider: Iraj Longoria M.D. Date: 0 10/05/2024 Generated for Rani french/José Miguel/eTransmitting on: 06/18/2024 12:15 PM EST History and Physical Notes * HPI (History of Present Illness) Category Sub-Category Detail Notes Category Not es HPI Patient is here today for Pt is here today for a 3 month check up. Pt sts she is doing well and has no concerns at this time Examination Category Sub-Category Detail Notes Category Not es General Examination Heart: RSR Lungs: clear to auscultatio n Extremities: no leg edema General Appearance: NAD. Affect good. We ight loss noted
--- OUTSIDE RECORDS SUMMARY | 2025-01-09 05:30 | XMS_ITS ---
Author Organization [facility] Address 1210 [facility] [address] [place] [phone] Care Team Providers Care Grant Writer Name Role Phone Iraj Longoria Primary Care [...] Encounter Location Date Provider Diagnosis [facility] 1210 [facility] [address] [place] [phone] 01/09/2025 Iraj Longoria Attention deficit disorder F90.0 [...] Notes * Suzie ELLSWORTHDOB:2000 (24 yo F)Acc No.[id number]:01/09/2025 Progress Notes Patient: Suzie JONES Provider: Iraj Longoria M.D. :2000 A ge:24 Y S ex:Female Date:01/09/2025 Address:[address], [place], [id number] Subjective: * Chief Complaints: * 1 . [...] * Images: Billing Information: * Visit Code: 06193 Office Visit, Est Pt., Level 3. * Procedure Codes: 1036F TOBACCO NON-USER. 3075F SYST BP GE 130 - 139MM HG. 3079F DIAST BP 80-89 MM HG. * Electronic signature of Iraj Longoria MD on 04/18/2025 at 12:15 PM EST Sign off status: Pending * Provider: Iraj Longoria M.D. Date: 0 01/09/2025 Generated for Rani french/José Miguel/Nimishaitting on: 06/18/2024 12:15 PM EST History and Physical Notes * HPI (History of Present Illness) Category Sub-Category Detail Notes Category Not es Psychology She is planning to have her IUD removed and she and her are trying to get .
--- OUTSIDE RECORDS SUMMARY | 2025-04-18 12:16 | XMS_ITS | Patient Health Record ---
Author Organization [facility] Address [address] [place] [id number] Care Team Providers Care Echo Vascular Tech Name Role Phone Iraj Longoria Primary Care Provider [phone] Sumeet Morales Unavailable [phone] Allergies No Known Allergies Reason For Referral No Information Medications Medication SIG (Take, Route, Frequency, Duration) Notes Start Date End Date Status Fernanda Fe 07/03 1-20 MG-MCG Take 1 tablet by mouth once daily; Duration: 28 Not-Sunil ing Metoprolol Succinate ER 50 MG Take 1 tablet by mouth once daily; Duration: 90 Active Immunizations Vaccine Route Administration Date Status Comme nts xGardasil Unknown 01/15/2010 Administered Tetanus Tdap-Adacel (over 7yrs) Unknown 01/15/2010 Admi nistered Tetanus Tdap-Adacel (over 7yrs) Unknown 08/19/2022 Admi nistered Fluzone PF Quad (6-35 months) Unknown 04/18/2019 Admini stered Problems Problem Type SNOMED Code ICD Code Onset Dates Problem Status W/U Status Risk Notes Problem Tachycardia (4778661) Tachycardia (R00.0) Active confirmed Problem Dysfunctional uterine bleeding (40026867806679) Dysfunctional uterine bleeding (N93.8) Active confirmed Problem Depressive disorder (41609197) Depressive disorder (F32.9) Active confirmed Problem Attention deficit disorder (86170386) Attention deficit disorder (F90.0) Active confirmed Problem Body mass index 40+ - morbidly obese (643803441) BMI 40.0-44.9, adult (Z68.41) Active confirmed Problem Tonsillith (1415875) Tonsillith (J35.8) Active confirmed Vital Signs Heart Rate 90 /min 01/09/2025 Blood pressure diastolic 80 mm Hg 01/09/2025 Height 64.50 in 01/09/2025 Blood pressure systolic 138 mm Hg 01/09/2025 Weight 239.4 lbs 01/09/2025 BMI 40.45 kg/m2 01/09/2025 Encounters Encounter Location Date Provider Diagnosis [facility] [address] [place], [place] [id number] 07/06/2024 R Denis Von Attention deficit disorder F90.0 and Tachycardia R00.0 [facility] [address] [place], [place] [id number] 10/05/2024 R Denis Von Attention deficit disorder F90.0 and Tachycardia R00.0 [facility] [address] [place] [id number] 01/09/2025 R Denis Von Attention deficit disorder F90.0 and Tachycardia R00.0 [facility] [address] [place] [id number] 05/18/2024 R Denis Von Attention deficit disorder F90.0 [facility] [address] [place] [id number] 06/27/2024 R Denis Von Attention deficit disorder F90.0 [facility] [address] [place] [id number] 08/16/2024 R Denis Von Attention deficit disorder F90.0 [facility] [address] [place], [place] [id number] 09/20/2024 R Denis Von Attention deficit disorder F90.0 [facility] [address] [place] [id number] 10/23/2024 Sumeet [place] Attention deficit disorder F90.0 [facility] [address] [place] [id number] 11/28/2024 R Denis Von Attention deficit disorder F90.0 [facility] [address] [place] [id number] 01/05/2025 Sumeet Morales Attention deficit disorder F90.0 [...] Start Date Coverage End Date [employer] [address] [place] [address] [id number] 1ESuzie Mota Self - patient is the insured Medical (General) History Medical History History ICD Code ADHD Tachycardia COVID 09/2020 Surgical History Surgery Date(Month/Year) Moisés Quinn 11/01/2019 Hospitalization History Reason Date(Month/Year) [facility] - Child 10/26/2022
== END 2025-04-18 23:59 | disposition home or self-care (01) ==
PROVIDERS: PCP Family Medicine; Visit Provider Obstetrics & Gynecology
DX: O03.9 Complete or unspecified spontaneous abortion without complication (principal)
CPT/HCPCS: 36415; 84702

== ENCOUNTER 2025-04-25 10:21 | Outpatient (CLI) | payer BC, SELFPAY ==
--- OUTSIDE RECORDS SUMMARY | 2024-01-06 04:45 | XMS_ITS ---
Author Organization [facility] Address [address] [place] [phone] Care Team Providers Care Service Rig Operator Name Role Phone Iraj Longoria Primary Care Provider Allergies No Known Allergies REASON FOR VISIT [...] Encounters Encounter Location Date Provider Diagnosis [facility] [address] [place] [address] [place] [phone] 01/06/2024 Iraj Longoria Attention deficit disorder F90.0 [...] Notes * Suzie ELLSWORTHDOB:2000 (24 yo F)Acc No.[id number]:01/06/2024 Patient: Suzie JONES Provider: Iraj Longoria M.D. :2000 A ge:23 Y S ex:Female Date:01/06/2024 Address:[address] [place] [address], [place], [id number] Subjective: * Chief Complaints: * 1 . [...] * Images: Billing Information: * Visit Code: 73226 Office Visit, Est Pt., Level 3. * Procedure Codes: 65439 PULSE OX. * Electronic signature of Iraj Longoria MD on 04/25/2025 at 10:26 AM EST Sign off status: Pending * Provider: Iraj Longoria M.D. Date: 0 01/06/2024 Generated for Rani french/José Miguel/Nimishaitting on: 1 06/25/2024 10:26 AM EST History and Physical Notes * HPI [...]
--- OUTSIDE RECORDS SUMMARY | 2024-04-06 04:00 | XMS_ITS ---
Author Organization [facility] Address 1210 [facility] [address] [place] [phone] Care Team Providers Care Latin Teacher Name Role Phone Iraj Longoria Primary Care Provider Allergies No Known Allergies REASON FOR VISIT 3 months Medications Medication SIG (Take, Route, Frequency, Duration) Notes Start Date End Date Status Vyvanse 20 MG 1 tablet in the morn ing Orally Once a day 04/06/2024 Active Fernanda Fe 07/03 1-20 MG-MCG Take 1 tablet by mouth once daily; Duration: 28 Not-Sunil ing Metoprolol Succinate ER 50 MG 1 tablet Orally Once a day Active Vital Signs Blood pressure systolic 122 mm Hg 04/06/20 Blood pressure diastolic 76 mm Hg 024 Heart Rate 92 /min 04/06/2024 Height 64.50 in 04/06/2024 Weight 250.6 lbs 04/06/2024 BMI 42.35 kg/m2 04/06/2024 Encounters Encounter Location Date Provider Diagnosis [facility] 1210 [facility] [address] [place] [phone] 04/06/2024 Iraj Longoria Attention deficit disorder F90.0 and Tachycardia R00.0 Assessments Encounter Date Diagnosis (ICD Code) Assessment Notes Treatment Notes Treatment Clinical Notes Section Notes 04/06/2024 Attention deficit disorder (ICD-10 - F90.0) 04/06/2024 Tachycardia (ICD-10 - R00.0) Plan Of Treatment Medication Medication Name Sig Start Date Stop Date Notes Vyvanse 20 MG 1 tablet in the morn ing Orally Once a day 04/06/2024 Adderall XR 20 MG 1 capsule in the mor chad Orally Once a day Metoprolol Succinate ER 50 MG 1 tablet Orally Once a day Next Appt Details Follow Up: 3 Months, Reason: Progress Notes * Suzie ELLSWORTHDOB:2000 (24 yo F)Acc No.[id number]:04/06/2024 Progress Notes Patient: Suzie JONES Provider: Iraj Longoria M.D. :2000 A ge:23 Y S ex:Female Date:04/06/2024 Address:[address], [id number] Subjective: * Chief Complaints: * 1 . 3 months. * HPI: P sychology: The patient is here for a check up on ADD. Pt states she is having a hard time getting the Adderall XR. Pt states she has tried different pharmacies and none of them are able to get it in. Pt states she would like to discuss an alternative. * ROS: D ERMATOLOGY: no R alessio. n o H daniela. G ASTROENTEROLOGY: no N ausea. n o V omiting. n o D iarrhea.? U ROLOGY: no D ifficulty urinating. n [...] Allergies: N .K.D.A. Objective: * Vitals: W t:250.6, Temp:99.0, BP:122/76, HR:92, Nurse:SUSANNA, Ht: 64.50, BMI:42.35. * Examination: G eneral Examination: General Appearance: [...] Once a day, 90, Refills 1. * Follow Up: 3 Months * Images: Billing Information: * Visit Code: 82014 Office Visit, Est Pt., Level 3. * Procedure Codes: * Electronic signature of Iraj Longoria MD on 04/25/2025 at 10:26 AM EST Sign off status: Pending * Provider: Iraj Longoria M.D. Date: Generated for Rani french/José Miguel/eTransmitting on: 06/25/2024 10:26 AM EST History and Physical Notes * Examination Category Sub-Category Detail Notes Category Not es General Examination Heart: RSR Lungs: clear to auscultatio n Extremities: no leg edema General Appearance: NAD. Affect good
--- OUTSIDE RECORDS SUMMARY | 2024-07-06 04:45 | XMS_ITS ---
Author Organization [facility] Address 1210 [facility] [address] [place] [phone] Care Team Providers Care Or Rn Name Role Phone Iraj Longoria Primary Care [...] Encounter Location Date Provider Diagnosis [facility] 1210 [facility] [address] [place] [phone] 07/06/2024 Iraj Longoria Attention deficit disorder F90.0 [...] Notes * Suzie ELLSWORTHDOB:2000 (24 yo F)Acc No.[id number]:07/06/2024 Progress Notes Patient: Suzie JONES Provider: Iraj Longoria M.D. :2000 A ge:23 Y S ex:Female Date:07/06/2024 Address:[address] [place] [address], [place], [id number] Subjective: * Chief Complaints: * 1 . [...] * Images: Billing Information: * Visit Code: 88563 Office Visit, Est Pt., Level 3. * Procedure Codes: * Electronic signature of Iraj Longoria MD on 04/25/2025 at 10:25 AM EST Sign off status: Pending * Provider: Iraj Longoria M.D. Date: 0 07/06/2024 Generated for Rani french/José Miguel/Nimishaitting on: 06/25/2024 10:25 AM EST
--- OUTSIDE RECORDS SUMMARY | 2024-10-05 04:00 | XMS_ITS ---
Author Organization [facility] Address [address] [place] [phone] Care Team Providers Care Environmental Protection Officer Name Role Phone Iraj Longoria Primary Care [...] Encounter Location Date Provider Diagnosis [facility] [address] [place] [phone] 10/05/2024 Iraj Longoria Attention deficit disorder F90.0 [...] Notes * [place] ELLSWORTH:2000 (24 yo F)Acc No.[id number]:10/05/2024 Progress Notes Patient: Suzie JONES Provider: Iraj Longoria M.D. :2000 A ge:23 Y S ex:Female Date:10/05/2024 Address:[address] [place] [address], [place], [id number] Subjective: * Chief Complaints: * 1 . [...] * Images: Billing Information: * Visit Code: 98342 Office Visit, Est Pt., Level 3. * Procedure Codes: 3074F SYST BP LT 130 MM HG. 3079F DIAST BP 80-89 MM HG. * Electronic signature of Iraj Longoria MD on 04/25/2025 at 10:26 AM EST Sign off status: Pending * Provider: Iraj Longoria M.D. Date: 0 10/05/2024 Generated for Rani french/José Migeul/eTransmitting on: 1 06/25/2024 10:26 AM EST History [...]
--- OUTSIDE RECORDS SUMMARY | 2025-01-09 05:30 | XMS_ITS ---
Author Organization [facility] Address 1210 [facility] [address] [place] [phone] Care Team Providers Care Linen Supply Load Builder Name Role Phone Iraj Longoria Primary Care Provider [phone] Allergies No Known Allergies REASON FOR VISIT 3 months Medications Medication SIG (Take, Route, Frequency, Duration) Notes Start Date End Date Status Fernanda Fe 07/03 1-20 MG-MCG Take 1 tablet by mouth once daily; Duration: Not-Sunil ing Metoprolol Succinate ER 50 MG 1 tablet Orally Once a day Active Vital Signs Blood pressure systolic 138 mm Hg 01/10/20 25 Blood pressure diastolic 80 mm Hg 025 Heart Rate 90 /min 01/09/2025 Height 64.50 in 01/09/2025 Weight 239.4 lbs 01/09/2025 BMI 40.45 kg/m2 01/09/2025 Encounters Encounter Location Date Provider Diagnosis [facility] 1210 [facility] [address] [place] [phone] 01/09/2025 Iraj Longoria Attention deficit disorder F90.0 and Tachycardia R00.0 Assessments Encounter Date Diagnosis (ICD Code) Assessment Notes Treatment Notes Treatment Clinical Notes Section Notes 01/09/2025 Attention deficit disorder (ICD-10 - F90.0) Advised to discontinue Vyvanse while trying to get and throughout the duration of her . 01/09/2025 Tachycardia (ICD-10 - R00.0) Plan Of Treatment Medication Medication Name Sig Start Date Stop Date Notes Vyvanse 20 MG 1 capsule in the morning Orally Once a day Treatment Notes Assessment Notes Attention deficit disorder Advised to di scontinue Vyvanse while trying to get and throughout the duration of her . Next Appt Details Follow Up: prn, Reason: Progress Notes * Suzie ELLSWORTHDOB:2000 (24 yo F)Acc No.[id number]:01/09/2025 Progress Notes Patient: Suzie JONES Provider: Iraj Longoria M.D. :2000 A ge:24 Y S ex:Female Date:01/09/2025 Address:[address], [place], [id number] Subjective: * Chief Complaints: * 1 . 3 months. * HPI: P sychology: The patient is here for a check up on ADHD. Pt states she doing good and denies any new concerns. Pt states refills are not needed at this time. She is planning to have her IUD removed and she and her are trying to get . * ROS: D ERMATOLOGY: no R alessio. [...] N .K.D.A. Objective: * Vitals: W t: 239.4, Temp: 98.2, BP: 138/80, HR: 90, Nurse: SUSANNA, Ht: 64.50, BMI:40.45. Assessment: * Assessment: 1. A ttention deficit disorder - F90.0 (Primary) 2 . T achycardia - R00.0? Plan: * Treatment: * Procedure Codes: 1 036F TOBACCO NON-USER, 3075F SYST BP GE 130 - 139MM HG, 3079F DIAST BP 80-89 MM HG * Follow Up: p rn * Images: Billing Information: * Visit Code: 16036 Office Visit, Est Pt., Level 3. * Procedure Codes: 1036F TOBACCO NON-USER. 3075F SYST BP GE 130 - 139MM HG. 3079F DIAST BP 80-89 MM HG. * Electronic signature of Iraj Longoria MD on 04/25/2025 at 10:26 AM EST Sign off status: Pending * Provider: Iraj Longoria M.D. Date: 0 01/09/2025 Generated for Rani french/José Miguel/Nimishaitting on: 06/25/2024 10:26 AM EST History and Physical Notes * HPI (History of Present Illness) Category Sub-Category Detail Notes Category Not es Psychology She is planning to have her IUD removed and she and her are trying to get .
--- OUTSIDE RECORDS SUMMARY | 2025-04-25 10:27 | XMS_ITS | Patient Health Record ---
Author Organization [facility] Address [address] [place] [id number] Care Team Providers Care Gut Snatcher Name Role Phone Iraj Longoria Primary Care Provider Sumeet Morales Unavailable [phone] Allergies No Known Allergies Reason For Referral [...] Status W/U Status Risk Notes Problem Tachycardia (2045123) Tachycardia (R00.0) Active confirmed Problem Dysfunctional uterine bleeding (67208727370152) Dysfunctional uterine bleeding (N93.8) Active confirmed Problem Depressive disorder (13569785) Depressive disorder (F32.9) Active confirmed Problem Attention deficit disorder (15772761) Attention deficit disorder (F90.0) Active confirmed Problem Body mass index 40+ - morbidly obese (179882144) BMI 40.0-44.9, adult (Z68.41) Active confirmed Problem Tonsillith (0007520) Tonsillith (J35.8) Active confirmed Vital Signs Heart Rate 90 /min 01/09/2025 Blood pressure diastolic 80 mm Hg 01/09/2025 Height 64.50 in 01/09/2025 Blood pressure systolic 138 mm Hg 01/09/2025 Weight 239.4 lbs 01/09/2025 BMI 40.45 kg/m2 01/09/2025 Encounters Encounter Location Date Provider Diagnosis [facility] [address] [place], [place] [id number] 05/18/2024 R Denis Von Attention deficit disorder F90.0 [facility] [address] [place], [place] [id number] 06/27/2024 R Denis Von Attention deficit disorder F90.0 [facility] [address] [place], [place] [id number] 08/16/2024 R Denis Von Attention deficit disorder F90.0 [facility] [address] [place], [place] [id number] 09/20/2024 R Denis Von Attention deficit disorder F90.0 [facility] [address] [place], [place] [id number] 10/23/2024 Sumeet [place] Attention deficit disorder F90.0 [facility] [address] [place], [place] [id number] 11/28/2024 R Denis Von Attention deficit disorder F90.0 [facility] [address] [place], [place] [id number] 01/05/2025 Sumeet [place] Attention deficit disorder F90.0 [facility] [address] [place], [place] [id number] 07/06/2024 R Denis Von Attention deficit disorder F90.0 and Tachycardia R00.0 [facility] [address] [place], [place] [id number] 10/05/2024 R Denis Von Attention deficit disorder F90.0 and Tachycardia R00.0 [facility] [address] [place], [place] [id number] 01/09/2025 R Denis Von Attention deficit disorder [...] Start Date Coverage End Date [facility] [address] [place] [address] [phone] [id number] 1ESuzie Mota Self - patient is the insured Medical (General) History Medical History History ICD Code ADHD Tachycardia COVID 09/2020 Surgical History Surgery Date(Month/Year) Moisés Quinn 11/01/2019 Hospitalization History Reason Date(Month/Year) [facility] - Child 10/26/2022
== END 2025-04-25 23:59 | disposition home or self-care (01) ==
LOC: LAB 10:22
PROVIDERS: PCP Family Medicine; Visit Provider Obstetrics & Gynecology
DX: O03.9 Complete or unspecified spontaneous abortion without complication (principal); Z3A.00 Weeks of gestation of pregnancy not specified
CPT/HCPCS: 36415; 84702

== ENCOUNTER 2025-05-02 11:19 | Outpatient (CLI) | payer BC, SELFPAY | END 2025-05-02 23:59 | disposition home or self-care (01) | LOC: LAB 11:20 | PROVIDERS: PCP Family Medicine; Visit Provider Obstetrics & Gynecology | DX: O03.9 Complete or unspecified spontaneous abortion without complication (principal); Z3A.00 Weeks of gestation of pregnancy not specified | CPT/HCPCS: 36415; 84702 ==

== ENCOUNTER 2025-05-08 10:39 | Outpatient (CLI) | payer BC, SELFPAY | END 2025-05-08 23:59 | disposition home or self-care (01) | LOC: LAB 10:39 | PROVIDERS: PCP Family Medicine; Visit Provider Obstetrics & Gynecology | DX: O03.9 Complete or unspecified spontaneous abortion without complication (principal) | CPT/HCPCS: 36415; 84702 ==